=== PATIENT | female | born 1990 | race Caucasian/White ===

== ENCOUNTER 2016-11-23 23:16 | Emergency (ER) | payer OTHER ==
[~2016-11-23] VITALS: Ht 175.3 cm; Wt 80.0 kg
[~2016-11-23 23:16] MED LIST: BACT800T5 PO; LISI10TA3 PO; PROM12.54 PO
[2016-11-23 23:30] VITALS: BP 140/90; PULSE 76; RESP 16; TEMP 98; O2SAT 98
[2016-11-24 02:16] LABS: AUTOMATED NEUTROPHIL # 3.9 TH/MM3 (1.8-7.7); BASOPHIL % 0.4 % (0.0-2.0); EOSINOPHIL # 0.3 TH/MM3 (0-0.4); EOSINOPHIL % 4.2 % (0.0-4.0); HEMATOCRIT 37.1 % (35.0-46.0); HEMO FLAGS DIFF FINAL; LYMPH % 33.3 % (9.0-44.0); LYMPHOCYTE # 2.4 TH/MM3 (1.0-4.8); MEAN CELL VOLUME 87.6 FL (80.0-100.0); MEAN CORPUSCULAR HEMOGLOBIN 29.5 PG (27.0-34.0); MEAN CORPUSCULAR HGB CONC 33.6 % (32.0-36.0); MONO % 8.4 % (0.0-8.0); NEUT % 53.7 % (16.0-70.0); PLATELET COUNT 250 TH/MM3 (150-450); RED BLOOD COUNT 4.23 MIL/MM3 (4.00-5.30); RED CELL DISTRIBUTION WIDTH 14.1 % (11.6-17.2); WHITE BLOOD COUNT 7.2 TH/MM3 (4.0-11.0)
[2016-11-24 02:18] LABS: BACTERIA, URINE OCC /hpf; BLOOD, URINE SMALL (NEG); COMMENT (UR) CULTURE INDICATED; CULTURE IF INDICATED CULTURE INDICATED; GLUCOSE,URINE NEG (NEG); KETONE, URINE NEG (NEG); MUCUS URINE MANY /lpf (OCC); NITRITE,URINE POS (NEG); PH, URINE 5.5 (5.0-8.5); SQUAMOUS EPITHELIAL CELL URINE 13 /hpf (0-5); URINE COLOR YELLOW (YELLW/STRAW)
[2016-11-24 02:44] LABS: ANION GAP 11 MEQ/L (5-15); AST (GOT) 156 U/L (15-37); BICARBONATE 28.9 MEQ/L (21.0-32.0); BLOOD UREA NITROGEN 12 MG/DL (7-18); CHLORIDE 102 MEQ/L (98-107); GLOMERULAR FILTRATION RATE 68 ML/MIN (>89); POTASSIUM 3.6 MEQ/L (3.5-5.1); SODIUM (NA) 142 MEQ/L (136-145)
[2016-11-24 02:48] LABS: ALKALINE PHOSPHATASE 78 U/L (45-117); ALT (GPT) 192 U/L (10-53); TOTAL BILIRUBIN ADULT 0.4 MG/DL (0.2-1.0)
[2016-11-24] MEDS ORDERED: CIPR-9 PO (02:52)
--- NOTE | 2016-11-24 02:58 | PD ---
HPI Chief Complaint: Complaint Time Seen by Provider: 02:50 Travel History International Travel<30 days: No Contact w/Intl Traveler<30days: No Traveled to known affect area: No History of Present Illness HPI 26-year-old female with multiple complaints using leftover prescription of Bactrim for possible UTI. Patient has had blood in her urine. Patient has history of urinary tract infections. Patient also has history of colitis. Patient denies symptoms remind her of inflammation of her intestinal tract. Patient has had urinary frequency urgency dysuria and hematuria without flank pain. Patient reports 3 days ago she did have fever but after starting leftover antibiotic that her temperature has normalized. Patient denies other concerns or complaints. Patient rates pain 3/10 in intensity. PFSH Past Medical History Narrative Medical Depression Crohn's hypertension GERD migraines tobacco use alcohol use substance use nursing notes reviewed Hx Anticoagulant Therapy: No Depression: Yes (ptsd) Cardiovascular Problems: No Chemotherapy: No Cerebrovascular Accident: No Diabetes: No Diminished Hearing: No Gastrointestinal Disorders: Yes (CROHNS) Headaches: Yes Hypertension: Yes Psychiatric: No Reproductive: Yes (ABNORMAL BLEEDING) Respiratory: No Immunizations Current: No Migraines: Yes Seizures: No Thyroid Disease: No Ulcer: No Tetanus Vaccination: Unknown Influenza Vaccination: No ?: Not LMP: 11/04/16 : 7 Para: 2 Miscarriage: 5 Past Surgical History Gynecologic Surgery: Yes (FULL TERM STILL 03/31/12) Hysterectomy: No Other Surgery: No Social History Alcohol Use: Yes ("RARELY") Tobacco Use: Yes (1/2 PPD) Substance Use: Yes (POT, HEROIN, METH, BENZO'S) Allergies-Medications (Allergen,Severity, Reaction): Coded Allergies: No Known Allergies (Verified , 11/24/16) Reported Meds & Prescriptions Reported Meds & Active Scripts Active Cipro (Ciprofloxacin HCl) 500 Mg Tab 500 Mg PO BID 10 Days Review of Systems Except as stated in HPI: all other systems reviewed are Neg General / Constitutional: Positive: Fever, No: Chills (last week) HENT: No: Congestion Cardiovascular: No: Chest Pain or Discomfort Respiratory: No: Cough, Shortness of Breath, Wheezing Gastrointestinal: Positive: Nausea, Abdominal Pain (suprapubic pressure), No: Vomiting, Diarrhea, Hematemesis, Hematochezia Genitourinary: Positive: Urgency, Frequency, Dysuria, Hematuria, No: Pelvic Pain, Flank Pain, Discharge, Vaginal Bleeding Musculoskeletal: No: Myalgias, Arthralgias Skin: No Rash Neurologic: No: Weakness Psychiatric: No: Anxiety Hematologic/Lymphatic: No: Lymph Node Enlargement Physical Exam Narrative GENERAL: Well-developed well-nourished female in no acute distress no respiratory distress SKIN: Warm and dry. HEAD: Normocephalic. EYES: No scleral icterus. No injection or drainage. NECK: Supple, trachea midline. No JVD or lymphadenopathy. CARDIOVASCULAR: Regular rate and rhythm without murmurs, gallops, or rubs. RESPIRATORY: Breath sounds equal bilaterally. No accessory muscle use. GASTROINTESTINAL: Abdomen soft, non-tender except for mild suprapubic pressure to direct palpation without guarding or rebound, nondistended. MUSCULOSKELETAL: No cyanosis, or edema. BACK: Nontender without obvious deformity. No CVA tenderness. Data Data Last Documented VS Vital Signs Date Time Temp Pulse Resp B/P Pulse Ox O2 Delivery O2 Flow Rate FiO2 11/24/16 01:05 76 16 11/23/16 23:30 98.0 140/90 98 Orders Complete Blood Count With Diff (11/24/16 01:42) Comprehensive Metabolic Panel (11/24/16 01:42) Urinalysis - C+S If Indicated (11/24/16 01:42) Ed Urine Pregnancytest Poc (11/24/16 01:42) Urine Culture (11/24/16 01:58) Ceftriaxone Inj (Rocephin Inj) (11/24/16 03:00) Ketorolac Inj (Toradol Inj) (11/24/16 03:00) Labs Laboratory Tests Test 11/24/16 01:58 White Blood Count 7.2 TH/MM3 Red Blood Count 4.23 MIL/MM3 Hemoglobin 12.5 GM/DL Hematocrit 37.1 % Mean Corpuscular Volume 87.6 FL Mean Corpuscular Hemoglobin 29.5 PG Mean Corpuscular Hemoglobin 33.6 % Concent Red Cell Distribution Width 14.1 % Platelet Count 250 TH/MM3 Mean Platelet Volume 9.9 FL Neutrophils (%) (Auto) 53.7 % Lymphocytes (%) (Auto) 33.3 % Monocytes (%) (Auto) 8.4 % Eosinophils (%) (Auto) 4.2 % Basophils (%) (Auto) 0.4 % Neutrophils # (Auto) 3.9 TH/MM3 Lymphocytes # (Auto) 2.4 TH/MM3 Monocytes # (Auto) 0.6 TH/MM3 Eosinophils # (Auto) 0.3 TH/MM3 Basophils # (Auto) 0.0 TH/MM3 CBC Comment DIFF FINAL Differential Comment Urine Color YELLOW Urine Turbidity HAZY Urine pH 5.5 Urine Specific [place] 1.024 Urine Protein 30 mg/dL Urine Glucose (UA) NEG mg/dL Urine Ketones NEG mg/dL Urine Occult Blood SMALL Urine Nitrite POS Urine Bilirubin NEG Urine Urobilinogen LESS THAN 2.0 MG/DL Urine Leukocyte Esterase LARGE Urine RBC 19 /hpf Urine WBC 74 /hpf Urine Squamous Epithelial 13 /hpf Cells Urine Bacteria OCC /hpf Urine Mucus MANY /lpf Microscopic Urinalysis Comment CULTURE INDICATED Sodium Level 142 MEQ/L Potassium Level 3.6 MEQ/L Chloride Level 102 MEQ/L Carbon Dioxide Level 28.9 MEQ/L Anion Gap 11 MEQ/L Blood Urea Nitrogen 12 MG/DL Creatinine 0.97 MG/DL Estimat Glomerular Filtration 68 ML/MIN Rate Random Glucose 85 MG/DL Calcium Level 8.7 MG/DL Total Bilirubin 0.4 MG/DL Aspartate Amino Transf 156 U/L (AST/SGOT) Alanine Aminotransferase 192 U/L (ALT/SGPT) Alkaline Phosphatase 78 U/L Total Protein 8.1 GM/DL Albumin 3.9 GM/DL [facility] Medical Decision Making Medical Screen Exam Complete: Yes Emergency Medical Condition: Yes Medical Record Reviewed: Yes Interpretation(s) Urinalysis positive nitrites positive leukocyte Estrace positive white blood cells positive bacteria culture indicated Vital Signs Date Time Temp Pulse Resp B/P Pulse Ox O2 Delivery O2 Flow Rate FiO2 11/24/16 01:05 76 16 11/23/16 23:30 98.0 76 16 140/90 98 CBC & BMP Diagram 11/24/16 01:58 POC hCG: Negative Differential Diagnosis UTI, colitis, dehydration, URI Narrative Course IV access obtained specimens collected and sent for resulting Patient resting comfortably waiting on lab results CBC grossly within normal range; chemistries remarkable for elevated transaminases AST and ALT; urinalysis is markedly abnormal Patient administered Rocephin 1 g IV piggyback along with Toradol 30 mg IV Patient is stable for outpatient management for partially treated UTI; patient is encouraged follow-up with primary care provider Diagnosis Primary Impression: UTI (urinary tract infection) Additional Impression: Elevated transaminase level Referrals: Primary Care Physician call for appointment Patient Instructions: General Instructions Additional Instructions: Increase fluid hydration Complete course of antibiotic as prescribed Follow-up with primary care provider Use as needed as tolerated acetaminophen/Tylenol every 4 hours as needed for fever 100.4F or greater otherwise avoid use of acetaminophen Follow-up with primary care provider to have repeat lab work performed regarding liver function tests May use as tolerated ibuprofen/Advil/Motrin for pain associated with inflammation or for fever 100.4F or greater Return to the emergency department for any concerns or change in condition Med/Other Pt SpecificInfo: Prescription(s) given Scripts Ciprofloxacin (Cipro)500 Mg [id number] Mg PO BID 10 Days Ref 0 Prov:Padmini Real MD 11/24/16 Padmini Real MD Nov 24, 2016 02:58
[2016-11-24] MEDS ORDERED: KETOROLAC TROMETHAMINE 30 MG/ML (IVP) VIAL IV PUSH ONE (03:00)
[2016-11-24] MEDS ORDERED: cefTRIAXone INJ 1,000 MG in SODIUM CHLORIDE 0.9% INJ 100 ML IV ONE (03:00)
== END 2016-11-24 04:14 | disposition home or self-care (01) ==
LOC: NEPC 23:16
DX: N39.0 Urinary tract infection, site not specified (principal); B96.20 Unspecified Escherichia coli [E. coli] as the cause of diseases classified elsewhere; Z16.11 Resistance to penicillins; Z16.19 Resistance to other specified beta lactam antibiotics; Z16.20 Resistance to unspecified antibiotic; R74.0 Nonspecific elevation of levels of transaminase and lactic acid dehydrogenase [LDH]; I10 Essential (primary) hypertension; F17.210 Nicotine dependence, cigarettes, uncomplicated
CPT/HCPCS: 80053; 81001; 84703; 85025; 87077; 87086; 87186; 96374; 96375; 99283; J0696; J1885

== ENCOUNTER 2016-12-01 21:31 | Emergency (ER) | payer OTHER ==
[~2016-12-01] VITALS: Ht 175.3 cm; Wt 81.0 kg
[~2016-12-01 21:31] MED LIST changes: -BACT800T5 PO; +CIPR-9 PO; -LISI10TA3 PO; -PROM12.54 PO
[2016-12-01 21:33] VITALS: BP 133/85; PULSE 68; RESP 16; TEMP 97.8; O2SAT 100
--- NOTE | 2016-12-02 00:45 | PD ---
HPI Chief Complaint: GI Complaint Time Seen by Provider: 00:07 Travel History International Travel<30 days: No Contact w/Intl Traveler<30days: No Traveled to known affect area: No History of Present Illness HPI Patient is 18-year-old female presents to the emergency department for second evaluation of urinary tract infection. Patient was seen here last week diagnosed urinary tract infections in on Cipro. Patient states that she finished that supply and she received a call from us stating that that wasn't an appropriate antibiotic and she was prescribed additional embolic which she cannot afford. Patient states she's been gradually getting sicker this weeks, on and endorse some chills but did not take her temperature at home. Denies immunocompromised patient. Denies possibility. Does have a history of IV drug abuse. PFSH Past Medical History Hx Anticoagulant Therapy: No Depression: Yes (ptsd) Cardiovascular Problems: No Chemotherapy: No Cerebrovascular Accident: No Diabetes: No Diminished Hearing: No Gastrointestinal Disorders: Yes (CROHNS) Headaches: Yes Hypertension: Yes Psychiatric: No Reproductive: Yes (ABNORMAL BLEEDING) Respiratory: No Immunizations Current: No Migraines: Yes Seizures: No Thyroid Disease: No Ulcer: No ?: Not LMP: 3 weeks ago : 7 Para: 2 Miscarriage: 5 Past Surgical History Gynecologic Surgery: Yes (FULL TERM STILL 03/31/12) Hysterectomy: No Other Surgery: Yes (trigger finger) Social History Alcohol Use: Yes ("RARELY") Tobacco Use: Yes (1/2 PPD) Substance Use: Yes (POT, HEROIN, METH, BENZO'S) Allergies-Medications (Allergen,Severity, Reaction): Coded Allergies: *MDRO Multi-Drug Resistant Organism (Verified Adverse Reaction, Unknown, ) ESBL E.Coli (urine)-11/24/16 Reported Meds & Prescriptions Reported Meds & Active Scripts Active Augmentin (Amoxicillin-Clavulanate) 875-125 mg Tab 875 Mg PO BID 7 Days not for use in CrCl <30 ml/min. Review of Systems Except as stated in HPI: all other systems reviewed are Neg Physical Exam Narrative GENERAL: Well-developed well-nourished nontoxic appearance in no apparent distress. SKIN: Warm and dry. HEAD: Atraumatic. Normocephalic. EYES: Pupils equal and round. No scleral icterus. No injection or drainage. ENT: No nasal bleeding or discharge. Mucous membranes pink and moist. NECK: Trachea midline. No JVD. CARDIOVASCULAR: Regular rate and rhythm. No murmur appreciated. RESPIRATORY: No accessory muscle use. Clear to auscultation. Breath sounds equal bilaterally. GASTROINTESTINAL: Abdomen soft, non-tender, nondistended. Hepatic and splenic margins not palpable. MUSCULOSKELETAL: No obvious deformities. No clubbing. No cyanosis. No edema. NEUROLOGICAL: Awake and alert. No obvious cranial nerve deficits. Motor grossly within normal limits. Normal speech. PSYCHIATRIC: Appropriate mood and affect; insight and judgment normal. Data Data Last Documented VS Vital Signs Date Time Temp Pulse Resp B/P Pulse Ox O2 Delivery O2 Flow Rate FiO2 12/01/16 21:33 97.8 68 16 133/85 100 Orders Urinalysis - C+S If Indicated (12/02/16 00:05) Ed Urine Pregnancytest Poc (12/02/16 00:05) Complete Blood Count With Diff (12/02/16 00:33) Comprehensive Metabolic Panel (12/02/16 00:33) Isolation 08,20 (12/02/16 00:45) Urine Culture (12/02/16 00:15) Ampicillin-Sulbactam Inj (Unasyn Inj) (12/02/16 02:45) Labs Laboratory Tests Test 12/02/16 12/02/16 00:15 01:00 Urine Color DARK-YELLOW Urine Turbidity HAZY Urine pH 5.5 Urine Specific [place] 1.033 Urine Protein 30 mg/dL Urine Glucose (UA) NEG mg/dL Urine Ketones NEG mg/dL Urine Occult Blood NEG Urine Nitrite NEG Urine Bilirubin NEG Urine Urobilinogen 2.0 MG/DL Urine Leukocyte Esterase MOD Urine RBC 1 /hpf Urine WBC 17 /hpf Urine Squamous Epithelial 1 /hpf Cells Urine Mucus MANY /lpf Microscopic Urinalysis Comment CULTURE INDICATED White Blood Count 5.3 TH/MM3 Red Blood Count 4.21 MIL/MM3 Hemoglobin 12.4 GM/DL Hematocrit 37.4 % Mean Corpuscular Volume 88.8 FL Mean Corpuscular Hemoglobin 29.4 PG Mean Corpuscular Hemoglobin 33.1 % Concent Red Cell Distribution Width 14.0 % Platelet Count 191 TH/MM3 Mean Platelet Volume 10.5 FL Neutrophils (%) (Auto) 45.3 % Lymphocytes (%) (Auto) 39.5 % Monocytes (%) (Auto) 9.2 % Eosinophils (%) (Auto) 4.8 % Basophils (%) (Auto) 1.2 % Neutrophils # (Auto) 2.4 TH/MM3 Lymphocytes # (Auto) 2.1 TH/MM3 Monocytes # (Auto) 0.5 TH/MM3 Eosinophils # (Auto) 0.3 TH/MM3 Basophils # (Auto) 0.1 TH/MM3 CBC Comment DIFF FINAL Differential Comment Sodium Level 141 MEQ/L Potassium Level 3.9 MEQ/L Chloride Level 104 MEQ/L Carbon Dioxide Level 28.4 MEQ/L Anion Gap 9 MEQ/L Blood Urea Nitrogen 12 MG/DL Creatinine 1.04 MG/DL Estimat Glomerular Filtration 63 ML/MIN Rate Random Glucose 77 MG/DL Calcium Level 8.8 MG/DL Total Bilirubin 0.7 MG/DL Aspartate Amino Transf 339 U/L (AST/SGOT) Alanine Aminotransferase 497 U/L (ALT/SGPT) Alkaline Phosphatase 74 U/L Total Protein 7.0 GM/DL Albumin 3.4 GM/DL MDM Medical Decision Making Medical Screen Exam Complete: Yes Emergency Medical Condition: Yes Differential Diagnosis UTI, cystitis, pyonephritis unlikely, sepsis highly unlikely. ESBL. Narrative Course Patient 18-year-old female appears nontoxic. Review of her records show that she was having urinary tract infection of this week which is ESBL but was sensitive to Augmentin. On further history patient has lost her Medicaid card and therefore unable to get her medicines. She is provided documentation by registration that she has Medicaid active. Labs are reassuring and she has no Sirs criteria. Does still have evidence of urinary tract infection. Was given a dose of Unasyn in the emergency department and prescription for Augmentin. Discussed need for follow-up with primary care physician and return to ED criteria. She stable for discharge at this time. Diagnosis Primary Impression: UTI (urinary tract infection) Qualified Code: N30.00 - Acute cystitis without hematuria Med/Other Pt SpecificInfo: Prescription(s) given Scripts Amoxicillin-Clavulanate (Augmentin)875-125 mg [id number] Mg PO BID 7 Days Ref 0 not for use in CrCl <30 ml/min. Prov:Arash Reed MD 12/02/16 Disposition: 01 DISCHARGE HOME Condition: Stable Arash Reed MD Dec 02, 2016 00:45
[2016-12-02 01:20] LABS: BLOOD, URINE NEG (NEG); COMMENT (UR) CULTURE INDICATED; CULTURE IF INDICATED CULTURE INDICATED; GLUCOSE,URINE NEG (NEG); KETONE, URINE NEG (NEG); MUCUS URINE MANY /lpf (OCC); NITRITE,URINE NEG (NEG); PH, URINE 5.5 (5.0-8.5); SQUAMOUS EPITHELIAL CELL URINE 1 /hpf (0-5); URINE COLOR DARK-YELLOW (YELLW/STRAW)
[2016-12-02 01:28] LABS: AUTOMATED NEUTROPHIL # 2.4 TH/MM3 (1.8-7.7); BASOPHIL # 0.1 TH/MM3 (0-0.2); BASOPHIL % 1.2 % (0.0-2.0); EOSINOPHIL # 0.3 TH/MM3 (0-0.4); EOSINOPHIL % 4.8 % (0.0-4.0); HEMATOCRIT 37.4 % (35.0-46.0); HEMO FLAGS DIFF FINAL; LYMPH % 39.5 % (9.0-44.0); LYMPHOCYTE # 2.1 TH/MM3 (1.0-4.8); MEAN CELL VOLUME 88.8 FL (80.0-100.0); MEAN CORPUSCULAR HEMOGLOBIN 29.4 PG (27.0-34.0); MEAN CORPUSCULAR HGB CONC 33.1 % (32.0-36.0); MONO % 9.2 % (0.0-8.0); NEUT % 45.3 % (16.0-70.0); PLATELET COUNT 191 TH/MM3 (150-450); RED BLOOD COUNT 4.21 MIL/MM3 (4.00-5.30); WHITE BLOOD COUNT 5.3 TH/MM3 (4.0-11.0)
[2016-12-02 01:54] LABS: ALKALINE PHOSPHATASE 74 U/L (45-117); TOTAL BILIRUBIN ADULT 0.7 MG/DL (0.2-1.0)
[2016-12-02 02:42] LABS: ALT (GPT) 497 U/L (10-53); ANION GAP 9 MEQ/L (5-15); AST (GOT) 339 U/L (15-37); BICARBONATE 28.4 MEQ/L (21.0-32.0); BLOOD UREA NITROGEN 12 MG/DL (7-18); CHLORIDE 104 MEQ/L (98-107); GLOMERULAR FILTRATION RATE 63 ML/MIN (>89); SODIUM (NA) 141 MEQ/L (136-145)
[2016-12-02 02:43] LABS: POTASSIUM 3.9 MEQ/L (3.5-5.1)
[2016-12-02] MEDS ORDERED: AMPICILLIN-SULBACTAM INJ 3 GM in SODIUM CHLORIDE 0.9% INJ 100 ML IV ONE (02:45)
[2016-12-02] MEDS ORDERED: AUGM875T PO (03:16)
== END 2016-12-02 05:20 | disposition home or self-care (01) ==
LOC: NEPC 21:31
DX: N39.0 Urinary tract infection, site not specified (principal); B96.89 Other specified bacterial agents as the cause of diseases classified elsewhere; I10 Essential (primary) hypertension; F17.210 Nicotine dependence, cigarettes, uncomplicated; F12.90 Cannabis use, unspecified, uncomplicated; F15.90 Other stimulant use, unspecified, uncomplicated
CPT/HCPCS: 80053; 81001; 84703; 85025; 87086; 96374; 99283; J0295

== ENCOUNTER 2016-12-21 12:36 | Emergency (ER) | payer OTHER ==
[~2016-12-21] VITALS: Ht 175.3 cm; Wt 75.0 kg
[~2016-12-21 12:36] MED LIST changes: +AUGM875T PO; -CIPR-9 PO
[2016-12-21 12:44] VITALS: BP 148/104; PULSE 100; RESP 18; TEMP 97.8; O2SAT 95
[2016-12-21] MEDS ORDERED: LIDOCAINE 1%/EPINEPHrine 1:100,000 SOLN 20 ML VIAL INFIL ONE (14:15)
[2016-12-21] MEDS ORDERED: ONDANSETRON ODT 4 MG TAB PO ONE (14:15)
--- NOTE | 2016-12-21 14:17 | PD ---
HPI Chief Complaint: Lump, Cyst, Hernia Time Seen by Provider: 14:05 Travel History International Travel<30 days: No Contact w/Intl Traveler<30days: No Traveled to known affect area: No History of Present Illness HPI 26-year-old female presents for evaluation of right arm abscess. She reports that she injects IV Dilaudid and she missed her pain one week ago. Since then she has had pain and swelling. Pain is throbbing, constant, worse with palpation. She tried to drain it herself at home with no success. She has had some diarrhea over the past 2 days as well. She reports that she's been using Augmentin as well as leftover penicillin and effort to self treat. She endorses occasional chills as well as nausea. She has no other complaints at this time. PFSH Past Medical History Hx Anticoagulant Therapy: No Depression: Yes (ptsd) Cardiovascular Problems: No Chemotherapy: No Cerebrovascular Accident: No Diabetes: No Diminished Hearing: No Gastrointestinal Disorders: Yes (CROHNS) Headaches: Yes Hypertension: Yes Psychiatric: No Reproductive: Yes (ABNORMAL BLEEDING) Respiratory: No Immunizations Current: No Migraines: Yes Seizures: No Thyroid Disease: No Ulcer: No ?: Unknown LMP: OCT 2016 : 7 Para: 2 Miscarriage: 5 Past Surgical History Gynecologic Surgery: Yes (FULL TERM STILL 03/31/12) Hysterectomy: No Other Surgery: Yes (trigger finger) Social History Alcohol Use: Yes ("RARELY") Tobacco Use: Yes (1/2 PPD) Substance Use: Yes (POT, HEROIN, METH, BENZO'S) Allergies-Medications (Allergen,Severity, Reaction): Coded Allergies: *MDRO Multi-Drug Resistant Organism (Verified Adverse Reaction, Unknown, ) ESBL E.Coli (urine)-11/24/16 Reported Meds & Prescriptions Reported Meds & Active Scripts Active Augmentin (Amoxicillin-Clavulanate) 875-125 mg Tab 875 Mg PO BID 7 Days not for use in CrCl <30 ml/min. Review of Systems Except as stated in HPI: all other systems reviewed are Neg Physical Exam Narrative GENERAL: Well-developed well-nourished female in no acute distress SKIN: Warm and dry. Large fluctuant abscess right antecubital space. Minimal surrounding erythema. No drainage. HEAD: Atraumatic. Normocephalic. EYES: Pupils equal and round. No scleral icterus. No injection or drainage. ENT: No nasal bleeding or discharge. Mucous membranes pink and moist. NECK: Trachea midline. No JVD. CARDIOVASCULAR: Regular rate and rhythm. No murmur appreciated. RESPIRATORY: No accessory muscle use. Clear to auscultation. Breath sounds equal bilaterally. GASTROINTESTINAL: Abdomen soft, non-tender, nondistended. Hepatic and splenic margins not palpable. MUSCULOSKELETAL: No obvious deformities. Skin as noted above. NEUROLOGICAL: Awake and alert. No obvious cranial nerve deficits. Motor grossly within normal limits. Normal speech. Data Data Last Documented VS Vital Signs Date Time Temp Pulse Resp B/P Pulse Ox O2 Delivery O2 Flow Rate FiO2 12/21/16 12:44 97.8 100 18 148/104 95 Orders Lidocai-Epi 1%-1:100,000 Inj (Xylocaine- (12/21/16 14:15) Wound Culture And Gram Stain (12/21/16 14:05) Ed Urine Pregnancytest Poc (12/21/16 14:05) Ondansetron Odt (Zofran Odt) (12/21/16 14:15) Sulfamet-Trimeth Ds 800-160 Mg (Bactrim (12/21/16 14:45) Cephalexin (Keflex) (12/21/16 14:45) MDM Medical Decision Making Medical Screen Exam Complete: Yes Emergency Medical Condition: Yes Medical Record Reviewed: Yes Differential Diagnosis Abscess, cellulitis, sepsis, endocarditis Narrative Course 26-year-old female IV drug user presents with a large abscess to the right antecubital region. This abscess is very fluctuant and superficial and will be drained here. She otherwise appears well. She has had some nausea and diarrhea likely secondary to the administration of Augmentin and penicillin. Recommended discontinuing these agents. She was given some Zofran here. She has verbally consented to incision and drainage will be performed at bedside. Wound culture performed. She'll be started on Bactrim and Keflex pending culture results. Return in 2 days for packing removal and wound recheck. She was also given outpatient resource list in regards to detoxification. Procedures Procedure Narrative INCISION AND DRAINAGE OF ABSCESS: The area was prepped and was sterilely draped. A subcutaneous wheal of 1 % Xylocaine with epinephrine with a total number 10 mL was used to anesthetize the area. The area was properly anesthetized. A number 11 scalpel was used to make a 1.5-cm incision across the area of the abscess. Cultures were obtained. The abscess was drained an irrigated with normal saline. Quarter inch iodoform packing was placed in the wound. Sterile dressing applied. Patient advised to have packing removed in two days. Diagnosis Primary Impression: Abscess of right arm Additional Instructions: Return in 2 days for wound recheck, packing removal. Antibiotics as prescribed. Return sooner for any worsening symptoms such as fevers, increasing area of redness. Med/Other Pt SpecificInfo: Prescription(s) given, Wound Care Scripts Cephalexin (Keflex)500 Mg [id number] Mg PO Q6H 10 Days Ref 0 Prov:Becca Robles MD 12/21/16 Sulfamethoxazole-Trimethoprim (Bactrim DS)800-160 Mg Tab1 Tab PO BID #20 TAB Ref 0 Prov:Becca Robles MD 12/21/16 Disposition: 01 DISCHARGE HOME Condition: Stable Sb Crane Dec 21, 2016 14:17
--- NOTE | 2016-12-21 14:34 | PD ---
Data Data Last Documented VS Vital Signs Date Time Temp Pulse Resp B/P Pulse Ox O2 Delivery O2 Flow Rate FiO2 12/21/16 12:44 97.8 100 18 148/104 95 Orders Lidocai-Epi 1%-1:100,000 Inj (Xylocaine- (12/21/16 14:15) Wound Culture And Gram Stain (12/21/16 14:05) Ed Urine Pregnancytest Poc (12/21/16 14:05) Ondansetron Odt (Zofran Odt) (12/21/16 14:15) MDM Supervised Visit with KIKE: Yes Narrative Course I, Dr. Robles, have reviewed the advance practice practioner's documentation and am in agreement, met with the patient face to face, made the diagnosis, and the medical decision making was done by me. *My assessment and Findings: 26-year-old female with history of IV drug abuse here with right arm and abscess after she missed a vein several days ago. She's been taking leftover home antibiotics in an attempt to treat this infection and has some diarrhea with this. On exam she has a clear abscess with swelling, erythema and fluctuance in the right antecubital fossa. No evidence of other systemic infection. Abscess was incised, drained and patient discharged home with outpatient resources for chemical dependency. Diagnosis Primary Impression: Abscess of right arm Additional Impression: IV drug abuse Referrals: Primary Care Physician 2 days Packing removal [facility] call for appointment Additional Instruction: Packing removal in 2 days as discussed. Return to the emergency department for the warning signs discussed. Outpatient chemical dependency resources as provided. Med/Other Pt SpecificInfo: No Change to Meds Disposition: 01 DISCHARGE HOME Condition: Stable Becca Robles MD Dec 21, 2016 14:34
[2016-12-21] MEDS ORDERED: BACT800T5 PO (14:40)
[2016-12-21] MEDS ORDERED: CEPH-460 PO (14:40)
[2016-12-21] MEDS ORDERED: SULFAMETHOXAZOLE-TRIMETHOPRIM DS 800-160 MG TAB PO ONE (14:45)
[2016-12-21] MEDS ORDERED: CEPHALEXIN MONOHYDRATE 500 MG CAP PO ONE (14:45)
== END 2016-12-21 15:05 | disposition home or self-care (01) ==
LOC: NEPB 12:36
DX: L02.413 Cutaneous abscess of right upper limb (principal); I10 Essential (primary) hypertension; F17.210 Nicotine dependence, cigarettes, uncomplicated; F11.20 Opioid dependence, uncomplicated; F12.20 Cannabis dependence, uncomplicated; F19.20 Other psychoactive substance dependence, uncomplicated; F43.10 Post-traumatic stress disorder, unspecified; F32.9 Major depressive disorder, single episode, unspecified
CPT/HCPCS: 10061; 84703; 87070; 87185

== ENCOUNTER 2017-04-02 13:04 | Emergency (ER) | payer SELFPAY ==
[~2017-04-02] VITALS: Ht 175.3 cm; Wt 70.3 kg
[~2017-04-02 13:04] MED LIST changes: +BACT800T5 PO; +CEPH-460 PO
[2017-04-02 13:21] VITALS: BP 115/74; PULSE 120; RESP 16; TEMP 98.1; O2SAT 98
[2017-04-02] MEDS ORDERED: SODIUM CHLOR 0.9% 1000 ML INJ 1,000 ML IV SCH (13:54)
[2017-04-02] MEDS ORDERED: VANCOMYCIN INJ 1,000 MG in SODIUM CHLOR 0.9% 250 ML INJ 250 ML IV ONE (14:00)
[2017-04-02] MEDS ORDERED: TETANUS/DIPHTHERIA TOXOID ADULT 0.5 ML VIAL IM ONE (14:00)
[2017-04-02] MEDS ORDERED: SODIUM CHLORIDE 0.9% FLUSH 10 ML FLUSH IV FLUSH PRN (14:00)
--- NOTE | 2017-04-02 14:07 | PD ---
HPI Chief Complaint: Skin Problem Time Seen by Provider: 13:43 Travel History International Travel<30 days: No Contact w/Intl Traveler<30days: No Traveled to known affect area: No History of Present Illness HPI Patient is a 26-year-old female who presents to emergency room with complaints of skin abscesses. Reports that for the past week, she has noticed an abscess to her left axilla, reports 2 abscess to the left-side of her labia as well as an abscess near her rectum. Reports that she has been having subjective fever and chills with her symptoms. Reports that she has been applying cool compresses to the area with no relief of symptoms. Reports history of IVDA in the past, denies recent history of IVDA. Patient reports that she has been living at home with some of her friends, reports that sometimes she finds that her razors have hair on it that do not belong to her. Reports concern that her friends may be using her razor. Denies history of abscess in the past. PFSH Past Medical History Hx Anticoagulant Therapy: No Depression: Yes (ptsd) Cardiovascular Problems: No Chemotherapy: No Cerebrovascular Accident: No Diabetes: No Diminished Hearing: No Gastrointestinal Disorders: Yes (CROHNS) Headaches: Yes Hypertension: Yes Psychiatric: No Reproductive: Yes (ABNORMAL BLEEDING) Respiratory: No Immunizations Current: No Migraines: Yes Seizures: No Thyroid Disease: No Ulcer: No Tetanus Vaccination: Unknown ?: Not LMP: 1 MONTH AGO : 7 Para: 2 Miscarriage: 5 Past Surgical History Gynecologic Surgery: Yes (FULL TERM STILL 03/31/12) Hysterectomy: No Other Surgery: Yes (trigger finger) Social History Alcohol Use: Yes ("RARELY") Tobacco Use: Yes (1 PPD) Substance Use: Yes (POT, HEROIN, METH, BENZO'S) Allergies-Medications (Allergen,Severity, Reaction): Coded Allergies: *MDRO Multi-Drug Resistant Organism (Verified Adverse Reaction, Unknown, ) ESBL E.Coli (urine)-11/24/16 Reported Meds & Prescriptions Reported Meds & Active Scripts Active No Active Prescriptions or Reported Medications Review of Systems General / Constitutional: Positive: Fever, Chills Eyes: No: Visual changes HENT: No: Headaches Cardiovascular: No: Chest Pain or Discomfort Respiratory: No: Shortness of Breath Gastrointestinal: No: Abdominal Pain Genitourinary: No: Dysuria Musculoskeletal: No: Pain Skin: Positive Other (abscess), No Rash Neurologic: No: Weakness Psychiatric: No: Depression Endocrine: No: Polydipsia Hematologic/Lymphatic: No: Easy Bruising Physical Exam Narrative GENERAL: Mild distress SKIN: Focused skin assessment warm/dry. Patient with multiple abscesses her body, she with nonfluctuant abscess to her left axilla, patient with 2 nonfluctuant abscess cyst to her left labia majora, patient with nonfluctuant abscess near her rectal verge - no drainage from composite engineer: Atraumatic. Normocephalic. EYES: Pupils equal and round. No scleral icterus. No injection or drainage. ENT: No nasal bleeding or discharge. Mucous membranes pink and moist. NECK: Trachea midline. No JVD. CARDIOVASCULAR: Tachycardic. No murmur appreciated. RESPIRATORY: No accessory muscle use. Clear to auscultation. Breath sounds equal bilaterally. GASTROINTESTINAL: Abdomen soft, non-tender, nondistended. Hepatic and splenic margins not palpable. MUSCULOSKELETAL: No obvious deformities. No clubbing. No cyanosis. No edema. NEUROLOGICAL: Awake and alert. No obvious cranial nerve deficits. Motor grossly within normal limits. Normal speech. PSYCHIATRIC: patient anxious on exam Data Data Last Documented VS Vital Signs Date Time Temp Pulse Resp B/P Pulse Ox O2 Delivery O2 Flow Rate FiO2 04/02/17 15:22 78 16 99 Room Air 04/02/17 13:21 98.1 115/74 Orders Basic Metabolic Panel (Bmp) (04/02/17 13:54) Complete Blood Count With Diff (04/02/17 13:54) Iv Access Insert/Monitor (04/02/17 13:54) Sodium Chlor 0.9% 1000 Ml Inj (Ns 1000 M (04/02/17 13:54) Sodium Chloride 0.9% Flush (Ns Flush) (04/02/17 14:00) Ed Urine Pregnancytest Poc (04/02/17 13:54) Vancomycin Inj (Vancomycin Inj) (04/02/17 14:00) Tetanus/Diphtheria Tox Adult (Tetanus/Di (04/02/17 14:00) Labs Laboratory Tests Test 04/02/17 14:30 White Blood Count 8.0 TH/MM3 Red Blood Count 4.10 MIL/MM3 Hemoglobin 11.9 GM/DL Hematocrit 36.2 % Mean Corpuscular Volume 88.2 FL Mean Corpuscular Hemoglobin 29.0 PG Mean Corpuscular Hemoglobin 32.9 % Concent Red Cell Distribution Width 12.9 % Platelet Count 335 TH/MM3 Mean Platelet Volume 8.1 FL Neutrophils (%) (Auto) 78.1 % Lymphocytes (%) (Auto) 12.9 % Monocytes (%) (Auto) 5.6 % Eosinophils (%) (Auto) 2.5 % Basophils (%) (Auto) 0.9 % Neutrophils # (Auto) 6.2 TH/MM3 Lymphocytes # (Auto) 1.0 TH/MM3 Monocytes # (Auto) 0.5 TH/MM3 Eosinophils # (Auto) 0.2 TH/MM3 Basophils # (Auto) 0.1 TH/MM3 CBC Comment DIFF FINAL Differential Comment Sodium Level 143 MEQ/L Potassium Level 4.3 MEQ/L Chloride Level 108 MEQ/L Carbon Dioxide Level 27.6 MEQ/L Anion Gap 7 MEQ/L Blood Urea Nitrogen 12 MG/DL Creatinine 0.79 MG/DL Estimat Glomerular Filtration 87 ML/MIN Rate Random Glucose 97 MG/DL Calcium Level 9.1 MG/DL MDM Medical Decision Making Medical Screen Exam Complete: Yes Emergency Medical Condition: Yes Interpretation(s) Vital Signs Date Time Temp Pulse Resp B/P Pulse Ox O2 Delivery O2 Flow Rate FiO2 04/02/17 13:21 98.1 120 16 115/74 98 Differential Diagnosis Differential includes abscess versus swollen lymph nodes Narrative Course Patient is a 26-year-old female who presents to emergency room with complaints of abscesses to her left axilla, labia as well as near her rectal verge. Abscess is nonfluctuant in nature - discussed need for antibiotics and need for warm compresses. I am unable to drain abscesses at this time, will require antibiotics and re-evaluation in 48 hours. Plan to update her tetanus at this time Vital Signs Date Time Temp Pulse Resp B/P Pulse Ox O2 Delivery O2 Flow Rate FiO2 04/02/17 15:22 78 16 99 Room Air 04/02/17 13:21 98.1 120 16 115/74 98 CBC & BMP Diagram 04/02/17 14:30 Labs and repeat vs are reassuring. Patient with nonfluctuant abscesses. Discussed with patient need to follow-up in 48 hours for I&D. Discussed need for warm compresses. She will take antibiotics as prescribed. She will return to the emergency room if symptoms worsen or progress or she develops any fevers or chills. Diagnosis Primary Impression: Abscess of right axilla Additional Impression: Abscess of labia majora Patient Instructions: General Instructions Additional Instructions: Apply warm compresses to areas of abscess Take all antibiotics as prescribed Return to emergency room or to your primary care doctor's office in 48 hours for reevaluation Return to emergency room is worse or progress or if you develop fever/chills Med/Other Pt SpecificInfo: Prescription(s) given Scripts Ibuprofen 600 Mg [id number] Mg PO Q6H PRN (Pain/Inflammation) #40 TAB Ref 0 Prov:Liseth Tomas DO 04/02/17 Sulfamethoxazole-Trimethoprim (Bactrim DS)800-160 Mg Tab1 Tab PO BID 10 Days Ref 0 Prov:Liseth Tomas DO 04/02/17 Cephalexin (Keflex)500 Mg [id number] Mg PO Q6H 10 Days Ref 0 Prov:Liseth Tomas DO 04/02/17 Disposition: 01 DISCHARGE HOME Condition: Stable Liseth Tomas DO Apr 02, 2017 14:07
[2017-04-02 14:47] LABS: AUTOMATED NEUTROPHIL # 6.2 TH/MM3 (1.8-7.7); BASOPHIL # 0.1 TH/MM3 (0-0.2); BASOPHIL % 0.9 % (0.0-2.0); EOSINOPHIL # 0.2 TH/MM3 (0-0.4); EOSINOPHIL % 2.5 % (0.0-4.0); HEMATOCRIT 36.2 % (35.0-46.0); LYMPH % 12.9 % (9.0-44.0); MEAN CELL VOLUME 88.2 FL (80.0-100.0); MEAN CORPUSCULAR HGB CONC 32.9 % (32.0-36.0); MONO % 5.6 % (0.0-8.0); NEUT % 78.1 % (16.0-70.0); PLATELET COUNT 335 TH/MM3 (150-450); RED CELL DISTRIBUTION WIDTH 12.9 % (11.6-17.2)
[2017-04-02 14:58] LABS: POTASSIUM 4.3 MEQ/L (3.5-5.1)
[2017-04-02 15:03] LABS: BICARBONATE 27.6 MEQ/L (21.0-32.0); HEMO FLAGS DIFF FINAL
[2017-04-02 15:22] VITALS: PULSE 78; RESP 16; O2SAT 99
[2017-04-02] MEDS ORDERED: IBUP-232 PO (16:03)
[2017-04-02] MEDS ORDERED: BACT800T5 PO (16:03)
[2017-04-02] MEDS ORDERED: CEPH-460 PO (16:03)
== END 2017-04-02 16:49 | disposition home or self-care (01) ==
LOC: PHED 13:04
DX: L02.411 Cutaneous abscess of right axilla (principal); N76.4 Abscess of vulva; Z23 Encounter for immunization
CPT/HCPCS: 80048; 84703; 85025; 90471; 90714; 96365; 96366; 99284; J3370; J7030; J7050

== ENCOUNTER 2017-08-16 18:32 | Emergency (ER) | payer SELFPAY ==
[~2017-08-16] VITALS: Ht 175.3 cm; Wt 71.8 kg
[~2017-08-16 18:32] MED LIST changes: -AUGM875T PO; +IBUP-232 PO
[2017-08-16 18:36] VITALS: BP 139/68; PULSE 85; RESP 16; TEMP 97.5; O2SAT 99
[2017-08-16] MEDS ORDERED: CLIN300C5 PO (19:47)
--- NOTE | 2017-08-16 19:47 | PD ---
HPI Chief Complaint: Skin Problem Time Seen by Provider: 19:18 Travel History International Travel<30 days: No Contact w/Intl Traveler<30days: No Traveled to known affect area: No History of Present Illness HPI 26-year-old female here with abscess to the left upper extremity 2 days. She denies fever or chills. Patient is history of IV drug abuse. She reports that she injected into the site approximately one week ago. She reports she's had similar abscesses in the past. PFSH Past Medical History Hx Anticoagulant Therapy: No Anxiety: Yes Depression: Yes (ptsd) Cardiovascular Problems: No Chemotherapy: No Cerebrovascular Accident: No Diabetes: No Diminished Hearing: No Gastrointestinal Disorders: Yes (CROHNS) Headaches: Yes Hypertension: Yes Psychiatric: Yes Reproductive: Yes (ABNORMAL BLEEDING) Respiratory: No Immunizations Current: No Migraines: Yes Seizures: Yes (FROM XANAX WITHDRAW) Thyroid Disease: No Ulcer: No ?: Unknown LMP: STATES APPROXIMATELY 3 MONTHS AGO : 7 Para: 2 Miscarriage: 5 Past Surgical History Gynecologic Surgery: Yes (FULL TERM STILL 03/31/12) Hysterectomy: No Other Surgery: Yes (trigger finger) Social History Alcohol Use: Yes ("RARELY") Tobacco Use: Yes (1/2 PPD) Substance Use: Yes (POT, HEROIN, DILUADIDM, METH, BENZO'S) Allergies-Medications (Allergen,Severity, Reaction): Coded Allergies: *MDRO Multi-Drug Resistant Organism (Verified Adverse Reaction, Unknown, 08/16/17) ESBL E.Coli (urine)-11/24/16 Reported Meds & Prescriptions Reported Meds & Active Scripts Active Clindamycin (Clindamycin HCl) 300 Mg Cap 300 Mg PO Q6H 10 Days Physical Exam Narrative GENERAL: Well-nourished, well-developed patient. SKIN: Focused skin assessment warm/dry. 3.5 cm diameter area of fluctuance, erythema and induration over the left forearm over the AC. HEAD: Normocephalic. CARDIOVASCULAR: Regular rate and rhythm without murmurs, gallops, or rubs. RESPIRATORY: Breath sounds equal bilaterally. No accessory muscle use. MUSCULOSKELETAL: No cyanosis, or edema. Data Data Last Documented VS Vital Signs Date Time Temp Pulse Resp B/P (MAP) Pulse Ox O2 Delivery O2 Flow Rate FiO2 08/16/17 18:36 97.5 85 16 139/68 (91) 99 MDM Medical Decision Making Medical Screen Exam Complete: Yes Emergency Medical Condition: Yes Differential Diagnosis Abscess, cellulitis, wound infection Narrative Course 26-year-old female here with abscess to the left upper extremity 2 days. She denies fever or chills. Patient is history of IV drug abuse. She reports that she injected into the site approximately one week ago. She reports she's had similar abscesses in the past. Incision and drainage was performed. Patient tolerated procedure well. Return precautions discussed. Diagnosis Primary Impression: Abscess of left upper extremity Referrals: Primary Care Physician Additional Instructions: The antibiotics as prescribed. Change the dressing daily. The packing should be removed in 1-2 days. Return to emergency department if he developed new or worsening symptoms. Scripts Clindamycin (Clindamycin) 300 Mg Cap 300 MG PO Q6H for Infection for 10 Days, #40 CAP 0 Refills Prov: Felicita Mancilla 08/16/17 Disposition: 01 DISCHARGE HOME Condition: Stable Felicita Mancilla Aug 16, 2017 19:47
== END 2017-08-16 19:56 | disposition home or self-care (01) ==
LOC: PHEFT 18:32
DX: L02.414 Cutaneous abscess of left upper limb (principal); F17.210 Nicotine dependence, cigarettes, uncomplicated; F12.90 Cannabis use, unspecified, uncomplicated; F15.90 Other stimulant use, unspecified, uncomplicated
CPT/HCPCS: 10060; 10061

== ENCOUNTER 2017-09-09 11:40 | Emergency (ER) | payer SELFPAY ==
[~2017-09-09] VITALS: Ht 175.3 cm; Wt 71.0 kg
[~2017-09-09 11:40] MED LIST changes: -BACT800T5 PO; -CEPH-460 PO; +CLIN300C5 PO; -IBUP-232 PO
[2017-09-09 11:49] VITALS: BP 114/65; PULSE 88; RESP 16; TEMP 98.5; O2SAT 100
--- NOTE | 2017-09-09 13:23 | PD ---
HPI Chief Complaint: Eye Problems/Injury Time Seen by Provider: 13:04 Travel History International Travel<30 days: No Contact w/Intl Traveler<30days: No Traveled to known affect area: No History of Present Illness HPI 26-year-old female here with left upper lid swelling 3 days. She denies fever or chills. She denies visual changes. She denies eye pain. She denies injury or trauma. No aggravating or alleviating factors. Symptoms severity moderate. PFSH Past Medical History Hx Anticoagulant Therapy: No Anxiety: Yes Depression: Yes (ptsd) Cardiovascular Problems: No Chemotherapy: No Cerebrovascular Accident: No Diabetes: No Diminished Hearing: No Gastrointestinal Disorders: Yes (CROHNS) Headaches: Yes Hypertension: Yes Psychiatric: Yes Reproductive: Yes (ABNORMAL BLEEDING) Respiratory: No Immunizations Current: No Migraines: Yes Seizures: Yes (FROM XANAX WITHDRAW) Thyroid Disease: No Ulcer: No ?: Not LMP: ONE WEEK : 7 Para: 2 Miscarriage: 5 Past Surgical History Gynecologic Surgery: Yes (FULL TERM STILL 03/31/12) Hysterectomy: No Other Surgery: Yes (trigger finger) Social History Alcohol Use: Yes ("RARELY") Tobacco Use: Yes (1/2 PPD) Substance Use: Yes (POT, HEROIN, DILUADIDM, METH, BENZO'S) Allergies-Medications (Allergen,Severity, Reaction): Coded Allergies: *MDRO Multi-Drug Resistant Organism (Verified Adverse Reaction, Unknown, 08/16/17) ESBL E.Coli (urine)-11/24/16 Reported Meds & Prescriptions Reported Meds & Active Scripts Active Erythromycin Opth Oint 5 Mg/Gm Oint 1 Applic LEFT EYE QID Clindamycin (Clindamycin HCl) 300 Mg Cap 300 Mg PO Q6H 10 Days Review of Systems Except as stated in HPI: all other systems reviewed are Neg General / Constitutional: No: Fever Eyes: No: Visual changes Physical Exam Narrative GENERAL: Alert female in no distress. SKIN: Warm and dry. HEAD: Normocephalic. EYES: No injection or drainage. PERRLA. EOMs intact. EOMs painless. Moderate swelling/erythema isolated to the left upper lid. No proptosis. Visual acuity left eye 20/20 NECK: Supple, trachea midline. No JVD or lymphadenopathy. CARDIOVASCULAR: Regular rate and rhythm without murmurs, gallops, or rubs. RESPIRATORY: Breath sounds equal bilaterally. No accessory muscle use. Data Data Last Documented VS Vital Signs Date Time Temp Pulse Resp B/P (MAP) Pulse Ox O2 Delivery O2 Flow Rate FiO2 09/09/17 11:49 98.5 88 16 114/65 (81) 100 Orders Orders Ed Discharge Order (09/09/17 13:27) MDM Medical Decision Making Medical Screen Exam Complete: Yes Emergency Medical Condition: Yes Differential Diagnosis Periorbital cellulitis, orbital cellulitis, stye Narrative Course 26-year-old female here with left upper lid swelling 3 days. She denies fever or chills. On exam she has isolated left upper lid swelling. EOMs intact. Extra ocular motions are painless. Patient will be treated for left upper lid cellulitis. Strict return precautions discussed. Patient verbalizes understanding and agrees to plan Diagnosis Primary Impression: Cellulitis of left upper eyelid Referrals: Primary Care Physician Scripts Erythromycin Opth Oint (Erythromycin Opth Oint) 5 Mg/Gm Oint 1 APPLIC LEFT EYE QID for Infection, #1 TUBE 0 Refills Prov: Felicita Mancilla 09/09/17 Clindamycin (Clindamycin) 300 Mg Cap 300 MG PO Q6H for Infection for 10 Days, #40 CAP 0 Refills Prov: Felicita Mancilla 09/09/17 Disposition: 01 DISCHARGE HOME Condition: Stable Felicita Mancilla Sep 09, 2017 13:23
[2017-09-09] MEDS ORDERED: ERYTOIN10 LEFT EYE (13:26)
[2017-09-09] MEDS ORDERED: CLIN300C5 PO (13:26)
== END 2017-09-09 13:35 | disposition home or self-care (01) ==
LOC: PHED 11:40 → PHEFT 13:35
DX: H00.034 Abscess of left upper eyelid (principal); F17.200 Nicotine dependence, unspecified, uncomplicated
CPT/HCPCS: 99284

== ENCOUNTER 2018-06-12 19:06 | Inpatient (IN) ==
--- NOTE | 2018-06-12 20:57 | ED ---
HPI General Chief complaint: Allergic Reaction Stated complaint: poss reaction Time Seen by Provider: 06/12/18 20:56 Source: patient Mode of arrival: ambulatory Limitations: no limitations History of Present Illness HPI narrative: 27-year-old female with history of polysubstance abuse, opiate dependency, bipolar disorder, presents emergency department for evaluation. Patient states she was started on new medications 2 weeks ago. They include Seroquel, lamotrigine, Wellbutrin. Patient states that about 7 days after taking them, she began to feel high and having hallucinations. She feels like she is tripping on acid when she is not doing acid. Patient has also been unable to sleep. She denies any chest pain or tightness. No difficulty breathing. She has had no fever chills. Patient also uses IV opiates, cocaine , smokes marijuana. Her mother is with her and is concerned about all the medications that she is on. She is also requesting help with detox. Patient states that she wants us help. No other symptoms to report at this time. Related Data Home Medications Medication Instructions Recorded Confirmed bupropion HCl [Wellbutrin SR] 150 mg PO DAILY 05/08/18 05/08/18 Allergies Allergy/AdvReac Type Severity Reaction Status Date / Time *MDRO Multi-Drug Resistant AdvReac Unknown Uncoded 08/16/17 19:12 Organism Review of Systems ROS: all other systems reviewed are negative PMFSH Medical History Medical History Patient denies medical problems (Acute) Anxiety (Acute) Depression (Acute) PTSD (post-traumatic stress disorder) (Acute) Surgical History Surgical History No history of previous surgery (Acute) Social History Social History Substance History: Active Abuse Smoking Status: Current every day smoker Tobacco Type: Cigarettes How Often Do You Have a Drink Containing Alcohol: Never Recent Travel in [facility] within the Last 8 Weeks: No Recent Out of Country Travel within the Last 8 Weeks: No Exam Narrative Exam Narrative: GENERAL: Well-nourished female patient, anxious, pacing, without distress. SKIN: Focused skin assessment warm/dry. 2 cm in diameter hardened red lump on the left forearm. There is another one on the right antecubital space and on the left neck. There is no fluctuance. No drainage. No warmth to touch. HEAD: Atraumatic. Normocephalic. EYES: Pupils equal and round. No scleral icterus. No injection or drainage. ENT: No nasal bleeding or discharge. Mucous membranes pink and moist. NECK: Trachea midline. No JVD. CARDIOVASCULAR: Tachycardic rate and rhythm. No murmur appreciated. RESPIRATORY: No accessory muscle use. Clear to auscultation. Breath sounds equal bilaterally. GASTROINTESTINAL: Abdomen soft, non-tender, nondistended. Hepatic and splenic margins not palpable. MUSCULOSKELETAL: No obvious deformities. No clubbing. No cyanosis. No edema. NEUROLOGICAL: Awake and alert. No obvious cranial nerve deficits. Motor grossly within normal limits. Normal speech. Course Initial Documented Vital Signs Temperature 98.8 F 06/12/18 20:24 Pulse Rate 107 H 06/12/18 20:24 Respiratory Rate 20 06/12/18 20:24 Blood Pressure 122/85 06/12/18 20:24 Pulse Oximetry 97 06/12/18 20:24 Last Documented Vital Signs Temperature 98.8 F 06/12/18 20:24 Pulse Rate 110 H 06/13/18 00:05 Respiratory Rate 24 06/13/18 00:05 Blood Pressure 108/70 06/13/18 00:05 Pulse Oximetry 98 06/13/18 00:05 Medical Decision Making KIKE Attestation KIKE supervised visit: Yes MDM Narrative Medical decision making narrative: 27-year-old female presents emergency department for evaluation of possible adverse reaction to psychiatric medications. Patient has history of polysubstance abuse. Initially the patient is twitching, anxious, pacing around the room. She is willing to wait for workup and speak to psychiatry. I have explained to them that we are not a detox facility but would be happy to have psychiatrist see him in the morning to help with medication adjustment recommendations. The patient is given Ativan to help her to calm down. Upon reassessment, patient is more anxious. She is pacing. Mom is very concerned and irritated with the situation. Lab work has been reviewed and is without acute concern. Patient has mild hypokalemia. She is positive for opiates, benzodiazepines, cocaine, and marijuana. My concern is the patient actively withdrawing in conjunction with adverse effects from her antipsychotics. I discussed the patient my attending physician. She is given additional Ativan. She will be given 0.1 mg clonidine by mouth as well. Patient did last use heroin earlier today. 0000 patient is becoming more more agitated. She is having hallucinations. She is in the room, pretending to do drugs and smokes cigarettes. She is talking to people that are not there. She is intermittently agitated with outbursts of anger at her mom. She attempts to leave and states that her mom will not have to "worry about her anymore" she is asking us to let her "end it. " With concern for the patient's safety and her demonstrating that she would not be able to make decisions for herself at this time, I discussed this with my attending physician and she is placed under Roth act. Because patient has been given Ativan, she will be given Benadryl at this time. 0100 patient continues to have hallucinations. She is having intermittent outbursts of anger. She is up wandering, she thinks she is in somebody else's house. She will be given Zyprexa at this time. 0130 I have discussed the patient with Dr. Dixon. She is hallucinating more and becoming more aggressive. She continues to respond to internal stimuli. Dr. Dixon his, and assessed the patient. He recommends continued Ativan every hour until sedation. Patient is given additional Ativan at this time. 0200 patient is given additional Ativan. She is swinging at people who were not there. Patient appears very tired, however she is unwilling to lay down and relax and rest. 0230 patient is resting quietly in the bed. Her eyes are closed. Vital signs are stable. Medical Screen Exam Complete: Yes Emergency Medical Condition: Yes Differential Diagnosis Differential Diagnosis: Acute psychosis versus adjustment reaction versus polysubstance abuse versus withdrawal Lab Data Lab results reviewed: Yes I reviewed the patient's lab results. Result diagrams: 06/12/18 21:38 06/12/18 21:38 Lab Results 06/12/18 06/12/18 06/12/18 Range/Units 21:38 21:38 22:10 WBC 10.8 (4.0-11.0) th/mm3 RBC 4.17 (4.00-5.30) mil/mm3 Hgb 12.0 (11.6-15.3) gm/dL Hct 36.1 (35.0-46.0) % MCV 86.6 (80.0-100.0) fL MCH 28.8 (27.0-34.0) pg MCHC 33.2 (32.0-36.0) % RDW 13.3 (11.6-17.2) % Plt Count 317 (150-450) th/mm3 MPV 8.4 (7.0-11.0) fL Prelim Diff (Auto) Slide review pending Neut % (Auto) 60.3 (16.0-70.0) % Lymph % (Auto) 29.7 (9.0-44.0) % [place] % (Auto) 7.7 (0.0-8.0) % Eos % (Auto) 1.6 (0.0-4.0) % Baso % (Auto) 0.7 (0.0-2.0) % Neut # (Auto) 6.5 (1.8-7.7) th/mm3 Lymph # (Auto) 3.2 (1.0-4.8) th/mm3 [place] # (Auto) 0.8 (0.0-0.9) th/mm3 Eos # (Auto) 0.2 (0.0-0.4) th/mm3 Baso # (Auto) 0.1 (0.0-0.2) th/mm3 WBC Differential . Diff Scan Auto diff confirmed Differential Comment . Platelet Estimate Normal (Normal) Platelet Morphology Normal (Normal) Sodium 137 (136-145) meq/L Potassium 4.6 (3.5-5.1) meq/L Chloride 105 (98-107) meq/L Carbon Dioxide 23.4 (21.0-32.0) meq/L Anion Gap 9 (5-15) meq/L BUN 20 H (7-18) mg/dL Creatinine 1.07 H (0.50-1.00) mg/dL Estimated GFR 61 L (>89) mL/min Random Glucose 90 (74-106) mg/dL Calcium 8.8 (8.5-10.1) mg/dL Total Bilirubin 0.3 (0.2-1.0) mg/dL AST 31 (15-37) U/L ALT 40 (10-53) U/L Alkaline Phosphatase 69 (45-117) U/L Total Protein 8.1 (6.4-8.2) g/dL Albumin 3.5 (3.4-5.0) g/dL TSH 2.150 (0.358-3.740) uIU/mL Urine Color Yellow (Yellw/Straw) Urine Clarity Hazy H (Clear) Urine pH 5.0 (5.0-8.5) Ur Specific [place] 1.031 (1.002-1.035) Urine Protein 30 H (Neg-Trace) mg/dL Urine Glucose (UA) Negative (Negative) mg/dL Urine Ketones Trace H (Negative) mg/dL Urine Occult Blood Negative (Negative) Urine Nitrate Negative (Negative) Urine Bilirubin Negative (Negative) Urine Urobilinogen 2.0 H (Less than 2) mg/dL Ur Leukocyte Esterase Trace H (Negative) Urine RBC Less than 1 (0-3) /hpf Urine WBC 3 (0-5) /hpf Ur Squamous Epith Cells 2 (0-5) /hpf Hyaline Casts 1 (0-3) /lpf Urine Mucus Few H (Occasional) /lpf Micro UA Comment Culture not ind Ur Microscopic Review Not Reportable Urine Culture Comments Culture not ind Urine Opiates Screen (Neg) Acetaminophen Less than 2.0 L (10.0-30.0) mcg/mL Ur Barbiturates Screen (Neg) Ur Amphetamines Screen (Neg) U Benzodiazepines Scrn (Neg) Urine Cocaine Screen (Neg) U Cannabinoids Screen (Neg) Serum Alcohol Less than 3 (0-5) mg/dL 06/12/18 Range/Units 22:10 WBC (4.0-11.0) th/mm3 RBC (4.00-5.30) mil/mm3 Hgb (11.6-15.3) gm/dL Hct (35.0-46.0) % MCV (80.0-100.0) fL MCH (27.0-34.0) pg MCHC (32.0-36.0) % RDW (11.6-17.2) % Plt Count (150-450) th/mm3 MPV (7.0-11.0) fL Prelim Diff (Auto) Neut % (Auto) (16.0-70.0) % Lymph % (Auto) (9.0-44.0) % [place] % (Auto) (0.0-8.0) % Eos % (Auto) (0.0-4.0) % Baso % (Auto) (0.0-2.0) % Neut # (Auto) (1.8-7.7) th/mm3 Lymph # (Auto) (1.0-4.8) th/mm3 [place] # (Auto) (0.0-0.9) th/mm3 Eos # (Auto) (0.0-0.4) th/mm3 Baso # (Auto) (0.0-0.2) th/mm3 WBC Differential Diff Scan Differential Comment Platelet Estimate (Normal) Platelet Morphology (Normal) Sodium (136-145) meq/L Potassium (3.5-5.1) meq/L Chloride (98-107) meq/L Carbon Dioxide (21.0-32.0) meq/L Anion Gap (5-15) meq/L BUN (7-18) mg/dL Creatinine (0.50-1.00) mg/dL Estimated GFR (>89) mL/min Random Glucose (74-106) mg/dL Calcium (8.5-10.1) mg/dL Total Bilirubin (0.2-1.0) mg/dL AST (15-37) U/L ALT (10-53) U/L Alkaline Phosphatase (45-117) U/L Total Protein (6.4-8.2) g/dL Albumin (3.4-5.0) g/dL TSH (0.358-3.740) uIU/mL Urine Color (Yellw/Straw) Urine Clarity (Clear) Urine pH (5.0-8.5) Ur Specific [place] (1.002-1.035) Urine Protein (Neg-Trace) mg/dL Urine Glucose (UA) (Negative) mg/dL Urine Ketones (Negative) mg/dL Urine Occult Blood (Negative) Urine Nitrate (Negative) Urine Bilirubin (Negative) Urine Urobilinogen (Less than 2) mg/dL Ur Leukocyte Esterase (Negative) Urine RBC (0-3) /hpf Urine WBC (0-5) /hpf Ur Squamous Epith Cells (0-5) /hpf Hyaline Casts (0-3) /lpf Urine Mucus (Occasional) /lpf Micro UA Comment Ur Microscopic Review Urine Culture Comments Urine Opiates Screen Pos H (Neg) Acetaminophen (10.0-30.0) mcg/mL Ur Barbiturates Screen Neg (Neg) Ur Amphetamines Screen Neg (Neg) U Benzodiazepines Scrn Neg (Neg) Urine Cocaine Screen Pos H (Neg) U Cannabinoids Screen Pos H (Neg) Serum Alcohol (0-5) mg/dL Discharge Plan Discharge Disposition Patient Disposition: 30 Still Patient Discharge Condition Condition: Stable Discharge Details Diagnosis: Substance abuse, Opiate dependence, Benzodiazepine abuse, Hallucination, drug- induced, Adjustment reaction with mixed disturbance of emotions and conduct Physicians Team ED Provider: Dick Menon ED Midlevel Provider: Coni Kitchen Primary Care Provider: UNKNOWN, Rxs /Orders / Referrals /Forms Prescriptions: No Action bupropion HCl [Wellbutrin SR] 150 mg Tablet Extended Release 12 Hr 150 mg PO DAILY RF: 0 Discharge Interventions Interventions: Vital Signs Last Done: 06/13/18 00:05 Status ED Status: Medically Cleared
[2018-06-12 21:50] LABS: Baso # (Auto) 0.1 th/mm3 (0.0-0.2); Baso % (Auto) 0.7 % (0.0-2.0); Eos # (Auto) 0.2 th/mm3 (0.0-0.4); Eos % (Auto) 1.6 % (0.0-4.0); Hematocrit 36.1 % (35.0-46.0); Lymph # (Auto) 3.2 th/mm3 (1.0-4.8); Lymph % (Auto) 29.7 % (9.0-44.0); Mean Corpuscular HGB Conc 33.2 % (32.0-36.0); Mean Corpuscular Hemoglobin 28.8 pg (27.0-34.0); Mean Corpuscular Volume 86.6 fL (80.0-100.0); Mean Platelet Volume 8.4 fL (7.0-11.0); Mono # (Auto) 0.8 th/mm3 (0.0-0.9); Mono % (Auto) 7.7 % (0.0-8.0); Neut # (Auto) 6.5 th/mm3 (1.8-7.7); Neut % (Auto) 60.3 % (16.0-70.0); Platelet Count 317 th/mm3 (150-450); Red Blood Count 4.17 mil/mm3 (4.00-5.30); Red Cell Distribution Width 13.3 % (11.6-17.2); White Blood Count 10.8 th/mm3 (4.0-11.0)
[2018-06-12 21:58] LABS: Alanine Aminotransferase 40 U/L (10-53)
[2018-06-12 22:08] LABS: Alkaline Phosphatase 69 U/L (45-117); Total Protein 8.1 g/dL (6.4-8.2)
[2018-06-12 22:10] LABS: Albumin 3.5 g/dL (3.4-5.0); Anion Gap 9 meq/L (5-15); Aspartate Aminotransferase 31 U/L (15-37); Blood Urea Nitrogen 20 mg/dL (7-18); Calcium 8.8 mg/dL (8.5-10.1); Carbon Dioxide 23.4 meq/L (21.0-32.0); Chloride 105 meq/L (98-107); Glomerular Filtration Rate 61 mL/min (>89); Glucose,Random 90 mg/dL (74-106); Potassium 4.6 meq/L (3.5-5.1); Sodium 137 meq/L (136-145)
[2018-06-12] MEDS: Sod Chloride 0.9% Inj 1,000 ML IV.SIG SCH (22:10)
[2018-06-12 22:24] LABS: Bilirubin,Urine Negative (Negative); Clarity,Urine Hazy (Clear); Color,Urine Yellow (Yellw/Straw); Glucose,Urine (UA) Negative (Negative); Hyaline Casts,Urine 1 /lpf (0-3); Leukocyte Esterase,Urine Trace (Negative); Mucus,Urine Few /lpf (Occasional); Nitrite,Urine Negative (Negative); Specific Gravity,Urine 1.031 (1.002-1.035); Squamous Epithelial Cell,Urine 2 /hpf (0-5)
[2018-06-12 22:29] LABS: Amphetamine Screen,Urine Neg (Neg); Barbiturate Screen,Urine Neg (Neg); Cannabinoid Screen,Urine Pos (Neg); Cocaine Screen,Urine Pos (Neg)
[2018-06-12 22:30] LABS: Platelet Estimate Normal (Normal); Platelet Morphology Normal (Normal)
[2018-06-12 22:30] LABS: Opiate Screen,Urine Pos (Neg)
[2018-06-12] MEDS ORDERED: Sod Chloride 0.9% Inj 1,000 ML IV.SIG SCH (23:00)
[2018-06-13] MEDS ORDERED: Bisacodyl 10 MG Supp RECTAL PRN (05:07)
[2018-06-13] MEDS ORDERED: Acetaminophen 325 MG Tablet PO PRN (05:07)
[2018-06-13] MEDS ORDERED: Haloperidol Inj 5 MG/ML Ampul IV.PUSH PRN (05:12)
[2018-06-13] MEDS ORDERED: LORazepam 1 MG Tablet PO PRN (05:12)
[2018-06-13] MEDS ORDERED: Dexmedetomidine Inj 200 MCG/2 ML Vial IV.PUSH ONE (05:13)
[2018-06-13] MEDS ORDERED: Dexmedetomidine Inj 200 MCG in Sodium Chlor 0.9% Inj 48 ML IV.CONT PRN (05:13)
--- NOTE | 2018-06-13 05:33 | P.HPCC ---
History of Present Illness Primary Care Physician: UNKNOWN History of Present Illness: 27-year-old female with history of polysubstance abuse, opiate dependency, bipolar disorder, presents after she was started on new medications 2 weeks ago. They include Seroquel, lamotrigine, Wellbutrin. Patient initially said that about 7 days after taking them, she began to feel high and having hallucinations. She feels like she is tripping on acid when she is not doing acid. Patient has also been unable to sleep. She denied any chest pain or tightness. No difficulty breathing. She has had no fever chills. Patient also uses IV opiates, cocaine, smokes marijuana. Her mother is requesting help with detox. Patient also said that she wants help. At around 0335 the patient patient started yelling incomprehensible words within the room. She became diaphoretic, tachycardic but otherwise her vital signs remain stable. She was given 1 more milligram of Ativan. After several attempts to stabilize this patient and assist her through her symptoms, when she has received a total of 13 mg of IV Ativan, 0.1 mg clonidine, 50 mg of Benadryl, and 10 mg of Zyprexa she continues to present symptoms of severe withdrawal requiring admission to ICU with a CIWA protocol and Precedex drip. Inpatient Certification: I certify that the inpatient services were ordered in accordance with Medicare regulations governing the order. This includes certification that hospital inpatient services are reasonable and necessary and in the case of services not specified as inpatient-only under 42 CFR 419.22(n), that they are appropriately provided as inpatient services in accordance to with the 2-midnight benchmark under 43 CFR 412.3(e) Estimated Total Length of Stay (Days): 5 Plans for Post Hospital Care: Not yet determined Review of Systems unobtainable due to mental condition PMFSH - History History Provided By: Patient - Medical / Surgical Hx Neg / Unobtainable Medical Problems Denied: Unable to Obtain Surgical History: Unable to Obtain - Medical History Medical History: Medical History (Last Reviewed 06/13/18 @ 16:59 by Park Flores) Patient denies medical problems (Acute) Anxiety Depression PTSD (post-traumatic stress disorder) - Surgical History Surgical History: Surgical History (Last Reviewed 06/13/18 @ 16:59 by Park Flores) No history of previous surgery (Acute) - Tobacco History Tobacco Use In Past 30 Days: Yes Smoking Status: Current every day smoker Tobacco Type: Cigarettes - Alcohol History How Often Do You Have a Drink Containing Alcohol: Never - Substance Use History Substance History: Active Abuse - Substance Use Type Heroin Status: Active Route Used: Inhalation, Intravenously Last Used: TODAY Reason for Use: Get High - Travel History Recent Travel in the [place] Within the Last 8 Weeks: No Recent Travel Out of the Country Within the Last 8 Weeks: No - Immunization History Tetanus Immunization: <5 Years Hx Influenza Vaccine This Season: No Medications and Allergies Active Medications: Active Medications Acetaminophen (Tylenol) 650 mg PO Q6H PRN PRN Reason: PAIN 1-10 AND/OR FEVER >101F Al Hydroxide/Mg Hydroxide (Milk Of Magnnaresh Liq) 30 ml PO Q12H PRN PRN Reason: Mild Constipation Albuterol (Duoneb Neb (Prn)) 1 ampul NEB Q2HR NEB PRN PRN Reason: WHEEZING Bisacodyl (Dulcolax Supp) 10 mg RECTAL DAILY PRN PRN Reason: SEVERE CONSITIPATION Bupropion HCl (Wellbutrin Sr) 150 mg PO DAILY [facility] Chlorhexidine Gluconate (Chlorhexidine 2% Cloth) 3 pack TOPICAL DAILY@0400 LESLIE Stop: 06/19/18 03:59 Chlorhexidine Gluconate (Chlorhexidine 2% Cloth) 3 pack TOPICAL DAILY@0400 PRN PRN Reason: Extra cloth needed Stop: 06/19/18 03:59 Enoxaparin Sodium (Lovenox Inj) 40 mg SQ Q24H LESLIE Flumazenil (Romazecon Inj) 0.2 mg IV.PUSH Q1M PRN PRN Reason: OVERSEDATION Haloperidol Lactate (Haldol Inj) 1 mg IV.PUSH Q15M PRN PRN Reason: for severe agitation Sodium Chloride (Ns Inj) 1,000 mls @ 0 mls/hr IV.SIG BOLUS LESLIE Last Infusion: 06/12/18 23:43 Dose: Infused Sodium Chloride (Ns Inj) 1,000 mls @ 0 mls/hr IV.SIG BOLUS LESLIE Last Infusion: 06/13/18 01:34 Dose: Infused Sodium Chloride (Ns Inj) 1,000 mls @ 184 mls/hr IV.CONT .Q5H27M [facility] Dexmedetomidine HCl 200 mcg/ (Sodium Chloride) 50 mls @ 3.26 mls/hr IV.CONT TITRATE PRN; Protocol PRN Reason: Per Protocol Lactulose (Lactulose Liq) 30 ml PO DAILY PRN PRN Reason: SEVERE CONSITIPATION Lorazepam (Ativan) 1 mg PO Q4H PRN PRN Reason: for CIWA 8-10 Lorazepam (Ativan) 2 mg PO Q2H PRN PRN Reason: for CIWA 11-14 Lorazepam (Ativan Inj) 2 mg IV.PUSH Q2H PRN PRN Reason: for CIWA 11-14 Lorazepam (Ativan Inj) 2 mg IV.PUSH Q1H PRN PRN Reason: for CIWA 15-20 Lorazepam (Ativan Inj) 2 mg IV.PUSH Q15M PRN PRN Reason: for CIWA > 20 Lorazepam (Ativan Inj) 1 mg IV.PUSH Q4H PRN PRN Reason: for CIWA 8-10 Metoclopramide HCl (Reglan Inj) 5 mg IV.PUSH Q6HR LESLIE; Protocol Morphine Sulfate (Morphine Inj) 2 mg IV.PUSH Q2H PRN PRN Reason: PAIN SCALE 6 TO 10 Ondansetron HCl (Zofran Inj) 4 mg IV.PUSH Q6H PRN PRN Reason: NAUSEA OR VOMITING Senna/Docusate Sodium (Jocelin-Colace) 1 tab PO BID LESLIE Sennosides (Senokot) 17.2 mg PO Q12H PRN PRN Reason: Moderate Constipation Sodium Chloride (Ns Flush) 2 ml IV.FLUSH BID LESLIE Sodium Chloride (Ns Flush) 2 ml IV.FLUSH PRN PRN PRN Reason: FLUSH AFTER USING IV ACCESS Allergies Allergy/AdvReac Type Severity Reaction Status Date / Time *MDRO Multi-Drug Resistant AdvReac Unknown Uncoded 08/16/17 19:12 Organism Home Medications Medication Instructions Recorded Confirmed Type bupropion HCl [Wellbutrin SR] 150 mg PO DAILY 05/08/18 06/13/18 History Results - Labs CBC & Chem 7: 06/12/18 21:38 06/12/18 21:38 Labs: Short CBC 06/12/18 Range/Units 21:38 WBC 10.8 (4.0-11.0) th/mm3 Hgb 12.0 (11.6-15.3) gm/dL Hct 36.1 (35.0-46.0) % Plt Count 317 (150-450) th/mm3 BMP 06/12/18 21:38 Sodium 137 Potassium 4.6 Chloride 105 Carbon Dioxide 23.4 BUN 20 H Creatinine 1.07 H Calcium 8.8 Liver Function 06/12/18 Range/Units 21:38 Total Bilirubin 0.3 (0.2-1.0) mg/dL AST 31 (15-37) U/L ALT 40 (10-53) U/L Alkaline Phosphatase 69 (45-117) U/L Albumin 3.5 (3.4-5.0) g/dL Urine 06/12/18 Range/Units 22:10 Urine Color Yellow (Yellw/Straw) Urine Clarity Hazy H (Clear) Urine pH 5.0 (5.0-8.5) Ur Specific [place] 1.031 (1.002-1.035) Urine Protein 30 H (Neg-Trace) mg/dL Urine Glucose (UA) Negative (Negative) mg/dL Exam Vital signs: Vital Signs 06/12/18 20:24 06/13/18 00:05 06/13/18 03:45 Temperature 98.8 F Pulse Rate 107 H 110 H 85 Respiratory Rate 20 24 18 Blood Pressure 122/85 108/70 Pulse Oximetry 97 98 94 L 06/13/18 05:09 Temperature Pulse Rate 68 Respiratory Rate 18 Blood Pressure 110/78 Pulse Oximetry 100 Intake & Output 06/12/18 06/12/18 06/13/18 06:59 18:59 06:59 Intake Total 1999 Balance 1999 Weight 65.317 kg Intake: IV 1999 NS Inj 1,000 ML @ Wide Open IV. 1999 SIG BOLUS [facility] Rx#:[id number] - Constitutional severe distress - Routine HEENT Exam Head: Present: normocephalic, atraumatic Eye: Present: PERRL ENT: Present: mucous membranes moist - Routine Neck Exam Present: supple, full ROM. Absent: JVD, carotid bruit - Routine Respiratory Exam Absent: accessory muscle use, rhonchi, stridor, wheezes - Routine Cardiovascular Exam Present: RRR, S1, S2, tachycardia - Routine Abdominal Exam Present: soft, normoactive bowel sounds. Absent: tenderness, distended - Routine Extremities Exam Absent: cyanosis, clubbing, edema - Routine Skin Exam Present: intact. Absent: cyanosis, erythema - Routine Neurological Exam Present: altered mental status, moving all extremities Caprini VTE Risk Assessment Caprini VTE Risk Assessment: Moderate/High Risk (score >= 2) Caprini Risk Assessment Model: Point Value = 1 Point Value = 2 Point Value = 3 Point Value = 5 Age 41-60 Minor surgery BMI > 25 kg/m2 Swollen legs Varicose veins or History of unexplained or recurrent spontaneous Oral contraceptives or hormone replacement Sepsis (< 1 month) Serious lung disease, including pneumonia (< 1 month) Abnormal pulmonary function Acute myocardial infarction Congestive heart failure (< 1 month) History of inflammatory bowel disease Medical patient at bed rest Age 61-74 Arthroscopic surgery Major open surgery (> 45 min) Laparoscopic surgery (> 45 min) Malignancy Confined to bed (> 72 hours) Immobilizing plaster cast Central venous access Age >= 75 History of VTE Family history of VTE Factor V Leiden Prothrombin [id number] Lupus anticoagulant Anticardiolipin antibodies Elevated serum homocysteine Heparin-induced thrombocytopenia Other congenital or acquired thrombophilia Stroke (< 1 month) Elective arthroplasty Hip, pelvis, or leg fracture Acute spinal cord injury (< 1 month) Prophylaxis Regimen: Total Risk Factor Score Risk Level Prophylaxis Regimen 0-1 Low Early ambulation 2 Moderate Order ONE of the following: *Sequential Compression Device (SCD) *Heparin 5000 units SQ BID 3-4 Higher Order ONE of the following medications: *Heparin 5000 units SQ TID *Enoxaparin/Lovenox 40 mg SQ daily (WT < 150 kg, CrCl > 30 mL/min) *Enoxaparin/Lovenox 30 mg SQ daily (WT < 150 kg, CrCl > 10-29 mL/min) *Enoxaparin/Lovenox 30 mg SQ BID (WT < 150 kg, CrCl > 30 mL/min) AND/OR *Sequential Compression Device (SCD) 5 or more Highest Order ONE of the following medications: *Heparin 5000 units SQ TID (Preferred with Epidurals) *Enoxaparin/Lovenox 40 mg SQ daily (WT < 150 kg, CrCl > 30 mL/min) *Enoxaparin/Lovenox 30 mg SQ daily (WT < 150 kg, CrCl > 10-29 mL/min) *Enoxaparin/Lovenox 30 mg SQ BID (WT < 150 kg, CrCl > 30 mL/min) AND *Sequential Compression Device (SCD) Assessment and Plan - Assessment and Plan Plan: Altered mental status -Withdrawal from polysubstance abuse -Admit to ICU -Telemetry -CIWA protocol -Precedex drips as needed -Follow-up drug screen toxicology -Monitor for airway protection and possible intubation Tachycardia -Due to above -Supportive care Depressions and PTSD -Continue Wellbutrin Acute kidney injury -Dehydration -Aggressive IV fluid resuscitation DVT GI prophylaxis -Teds SCDs -Subcu Lovenox -Pepcid 35 minutes of critical care
[2018-06-13] MEDS: Sod Chloride 0.9% Inj 1,000 ML IV.CONT SCH ×3 (05:45→22:34)
[2018-06-13] MEDS: Enoxaparin Inj 40 MG/0.4 ML Syringe SQ SCH (05:45)
[2018-06-13] MEDS: Dexmedetomidine Inj 1,000 MCG in Sodium Chlor 0.9% Inj 240 ML IV.CONT PRN ×2 (06:51→22:34)
[2018-06-13] MEDS ORDERED: Magnesium Oxide 400 MG Tablet PO PRN (07:33)
[2018-06-13] MEDS ORDERED: Potassium Chloride 25 MEQ Effervescent Tablet PO PRN (07:33)
[2018-06-13] MEDS ORDERED: Potassium Phosphate 500 MG Soluble Tablet PO PRN ×2 (07:33)
[2018-06-13] MEDS ORDERED: Sodium Phosphate Inj 30 MMOL in Sodium Chlor 0.9% Inj 250 ML IV.SIG PRN (07:33)
[2018-06-13] MEDS ORDERED: Potassium Chlor 40 mEq Premix 40 MEQ/100 ML PIGGYBACK IV.SIG PRN ×2 (07:33)
[2018-06-13] MEDS ORDERED: Potassium Chlor 20 mEq Premix 20 MEQ/100 ML PIGGYBACK IV.SIG PRN ×2 (07:33)
[2018-06-13] MEDS ORDERED: Potassium Phosphate Inj 30 MMOL in Sodium Chlor 0.9% Inj 250 ML IV.SIG PRN (07:33)
[2018-06-13] MEDS ORDERED: Magnesium Sulfate Inj 2 GM in Sodium Chlor 0.9% Inj 96 ML IV.SIG PRN (07:33)
[2018-06-13] MEDS ORDERED: Dextrose 50% in Water 50 ML Vial IV.PUSH PRN (07:33)
[2018-06-13] MEDS ORDERED: Magnesium Sulfate Inj 4 GM in Sodium Chlor 0.9% Inj 92 ML IV.SIG PRN (07:33)
--- NOTE | 2018-06-13 07:38 | P.PNCC ---
Subjective Subjective Remarks/Hospital Course: 27-year-old female with history of polysubstance abuse, opiate dependency, bipolar disorder, presents after she was started on new medications 2 weeks ago. They include Seroquel, lamotrigine, Wellbutrin. Patient initially said that about 7 days after taking them, she began to feel high and having hallucinations. She feels like she is tripping on acid when she is not doing acid. Patient has also been unable to sleep. She denied any chest pain or tightness. No difficulty breathing. She has had no fever chills. Patient also uses IV opiates, cocaine, smokes marijuana. Her mother is requesting help with detox. Patient also said that she wants help. At around 0335 the patient patient started yelling incomprehensible words within the room. She became diaphoretic, tachycardic but otherwise her vital signs remain stable. She was given 1 more milligram of Ativan. After several attempts to stabilize this patient and assist her through her symptoms, when she has received a total of 13 mg of IV Ativan, 0.1 mg clonidine, 50 mg of Benadryl, and 10 mg of Zyprexa she continues to present symptoms of severe withdrawal requiring admission to ICU with a CIWA protocol and Precedex drip. Subjective 06/13: Afebrile. Received multi antipsychotics and sedatives overnight. Dexmedetomidine drip ordered. Roth act. Objective Vital Signs / I&O: Vital Signs 06/12/18 20:24 06/13/18 00:05 06/13/18 03:45 Temperature 98.8 F Pulse Rate 107 H 110 H 85 Respiratory Rate 20 24 18 Blood Pressure 122/85 108/70 Pulse Oximetry 97 98 94 L 06/13/18 05:09 06/13/18 06:39 Temperature 97.7 F Pulse Rate 68 70 Respiratory Rate 18 16 Blood Pressure 110/78 117/88 Pulse Oximetry 100 100 Intake & Output 06/12/18 06/13/18 06/13/18 18:59 06:59 18:59 Intake Total 1999 Balance 1999 Weight 55.4 kg Intake: IV 1999 NS Inj 1,000 ML @ Wide Open IV. 1999 SIG BOLUS [facility] Rx#:[id number] Other: Weight On Admission 55.4 kg Result Diagrams: 06/12/18 21:38 06/12/18 21:38 Objective Remarks: GENERAL: 27-year-old female currently resting in bed in no acute distress SKIN: Warm and dry. Garcia HEAD: Atraumatic. Normocephalic. EYES: Pupils equal and round. No scleral icterus. No injection or drainage. ENT: No nasal bleeding or discharge. Mucous membranes pink and moist. NECK: Trachea midline. No JVD. CARDIOVASCULAR: Regular rate and rhythm. S1, S2. No S4. RESPIRATORY: No accessory muscle use. Clear to auscultation. Breath sounds equal bilaterally. GASTROINTESTINAL: Abdomen soft, non-tender, nondistended. Hepatic and splenic margins not palpable. MUSCULOSKELETAL: Extremities without clubbing, cyanosis, or edema. No obvious deformities. NEUROLOGICAL: Awake and alert. No obvious cranial nerve deficits. Motor grossly within normal limits. Five out of 5 muscle strength in the arms and legs. Slurred speech. PSYCHIATRIC: Inappropriate mood and affect; insight and judgment not normal Assessment and Plan - Assessment and Plan Plan: Neuro/Psych: Acute delirium likely secondary to polysubstance withdrawal Depressive disorder NOS Anxiety disorder NOS Urine toxicology screen positive for THC, cocaine and opiate Holding home medications of quetiapine, lamotrigine and bupropion. Receiving as needed lorazepam, haloperidol and will initiate dexmedetomidine drip if indicated Received multiple doses of clonidine, diphenhydramine and lorazepam in the ED along with IM olanzapine Roth act. Consult when appropriate Placed on vitamin bag daily 3 days CV: Currently on normal saline at 100 cc an hour Not requiring vasopressors and/or antihypertensives Resp: Nasal cannula is indicated to maintain saturations greater than or equal to 92% Incentive spirometry while awake GI: Advance diet as tolerated Famotidine for GI prophylaxis Docusate sodium senna 1 tablet twice daily for bowel regimen : No indication for Cullen catheter Endo: Sliding scale insulin with Accu-Cheks to maintain euglycemia/aspart insulin low regimen every 6 hours TSH was 2.15 Renal: Creatinine within normal limits Monitor urine output Accurate I's and O's Heme: CBC within normal limits. ID: Monitor for signs and symptomatology infection UA negative Check blood cultures 2 MSK: PT evaluate and treat FEN: Replace electrolytes as clinically indicated per ICU electrolyte protocol Currently on normal saline at 100 cc an hour Access -Utilize peripheral IV. Central line if indicated Prophylaxis -GI -famotidine -DVT-SCDs plus/placed on enoxaparin by overnight pig lead melter helper. Level 2 follow-up Code Status: Full code Discussed Condition With: [facility] RN. Patient. Care plan discussed and all questions answered.
[2018-06-13] MEDS: Multivitamin Inj 10 ML, Thiamine Inj 100 MG, Folic Acid Inj 1 MG in Sodium Chlor 0.9% I... IV.SIG SCH (08:58)
[2018-06-13] MEDS: Famotidine PF Inj 20 MG/2 ML Vial IV.PUSH SCH ×2 (08:58→20:18)
[2018-06-13] MEDS: Senna/Docusate Sodium 8.6/50 MG Tablet PO SCH ×2 (08:59→20:19)
[2018-06-13] MEDS: buPROPion 150 MG 12 HR Tablet PO SCH (08:59)
[2018-06-13 09:30] LABS: Lipase 51 U/L (73-393); Magnesium 2.3 mg/dL (1.5-2.5); Phosphorus 3.6 mg/dL (2.5-4.9)
[2018-06-13 09:33] LABS: Creatine Kinase 493 U/L (26-192)
[2018-06-13 09:46] LABS: CKMB Percent 1.1 % (0.0-4.0); Creatine Kinase MB 5.4 ng/mL (0.5-3.6)
--- NOTE | 2018-06-13 10:54 | CT ---
EXAM DATE: 06/13/2018 10:51 AM EDT AGE/SEX: 27 years / Female INDICATIONS: Altered mental status. CLINICAL DATA: This is the patient's initial encounter. Patient reports that signs and symptoms have been present for 1 day and indicates a pain score of 0/10. MEDICAL/SURGICAL HISTORY: None. None. RADIATION DOSE: 35.14 CTDI (mGy) COMPARISON: [facility], CT BRAIN W/O CONTRAST, 09/21/2015. . TECHNIQUE: CT of the head without contrast. Using automated exposure control and adjustment of the mA and/or kV according to patient size, radiation dose was kept as low as reasonably achievable to ob tain optimal diagnostic quality images. DICOM format image data is available electronically for revi ew and comparison. FINDINGS: Cerebrum: The ventricles are normal for age. No evidence of midline shift, mass lesion, hemorrhage or acute infarction. No extraaxial fluid collections are seen. Posterior Fossa: The cerebellum and brainstem are intact. The 4th ventricle is midline. The cerebe llopontine angle is unremarkable. Extracranial: The visualized portion of the orbits is intact. Skull: The calvaria is intact. No evidence of skull fracture. CONCLUSION: 1. Negative CT Head non contrast. 2. No evidence of acute infarct, hemorrhage, mass or edema. . Electronically signed by: Dave Bazzi MD 06/13/2018 10:53 AM EDT
[2018-06-13] MEDS: Insulin NovoLOG Aspart Correctional Sugar Inj SQ SCH ×2 (12:04→18:58)
[2018-06-13 15:35] LABS: Activated Partial Thrombo Time 32.4 sec (24.3-30.1); INR 1.1 Ratio; Prothrombin Time 10.9 sec (9.8-11.6)
[2018-06-14] MEDS ORDERED: Chlorhexidine Gluconate 2% 1 Pack (2 Cloths) TOPICAL PRN (04:00)
[2018-06-14] MEDS: Chlorhexidine Gluconate 2% 1 Pack (2 Cloths) TOPICAL SCH (05:18)
[2018-06-14] MEDS: Insulin NovoLOG Aspart Correctional Sugar Inj SQ SCH ×4 (05:18→18:28)
[2018-06-14] MEDS: Enoxaparin Inj 40 MG/0.4 ML Syringe SQ SCH (05:20)
[2018-06-14] MEDS: Famotidine PF Inj 20 MG/2 ML Vial IV.PUSH SCH ×2 (09:05→20:42)
[2018-06-14] MEDS: Senna/Docusate Sodium 8.6/50 MG Tablet PO SCH ×2 (09:06→20:42)
[2018-06-14] MEDS: buPROPion 150 MG 12 HR Tablet PO SCH (09:06)
[2018-06-14 09:57] LABS: Baso % (Auto) 0.5 % (0.0-2.0); Eos # (Auto) 0.1 th/mm3 (0.0-0.4); Eos % (Auto) 1.1 % (0.0-4.0); Hematocrit 35.4 % (35.0-46.0); Hemoglobin 11.8 gm/dL (11.6-15.3); Lymph % (Auto) 27.1 % (9.0-44.0); Mean Corpuscular HGB Conc 33.4 % (32.0-36.0); Mean Corpuscular Hemoglobin 28.7 pg (27.0-34.0); Mean Corpuscular Volume 85.9 fL (80.0-100.0); Mean Platelet Volume 8.2 fL (7.0-11.0); Mono # (Auto) 0.3 th/mm3 (0.0-0.9); Mono % (Auto) 3.9 % (0.0-8.0); Neut # (Auto) 4.9 th/mm3 (1.8-7.7); Neut % (Auto) 67.4 % (16.0-70.0); Platelet Count 337 th/mm3 (150-450); Red Blood Count 4.12 mil/mm3 (4.00-5.30); Red Cell Distribution Width 13.2 % (11.6-17.2); White Blood Count 7.3 th/mm3 (4.0-11.0)
[2018-06-14] MEDS: Sod Chloride 0.9% Inj 1,000 ML IV.CONT SCH ×2 (10:05→18:32)
[2018-06-14 10:06] LABS: Activated Partial Thrombo Time 32.1 sec (24.3-30.1); INR 1.1 Ratio
[2018-06-14 10:15] LABS: Anion Gap 11 meq/L (5-15); Aspartate Aminotransferase 43 U/L (15-37); Blood Urea Nitrogen 15 mg/dL (7-18); Calcium 8.2 mg/dL (8.5-10.1); Carbon Dioxide 19.4 meq/L (21.0-32.0); Chloride 107 meq/L (98-107); Glomerular Filtration Rate Greater Than 89 mL/min (>89); Glucose,Random 68 mg/dL (74-106); Magnesium 2.1 mg/dL (1.5-2.5); Potassium 4.4 meq/L (3.5-5.1); Sodium 137 meq/L (136-145)
[2018-06-14 10:19] LABS: Alanine Aminotransferase 39 U/L (10-53); Alkaline Phosphatase 68 U/L (45-117); Phosphorus 3.5 mg/dL (2.5-4.9); Total Protein 6.8 g/dL (6.4-8.2)
--- NOTE | 2018-06-14 12:16 | P.PNCC ---
Subjective Subjective Remarks/Hospital Course: 27-year-old female with history of polysubstance abuse, opiate dependency, bipolar disorder, presents after she was started on new medications 2 weeks ago. They include Seroquel, lamotrigine, Wellbutrin. Patient initially said that about 7 days after taking them, she began to feel high and having hallucinations. She feels like she is tripping on acid when she is not doing acid. Patient has also been unable to sleep. She denied any chest pain or tightness. No difficulty breathing. She has had no fever chills. Patient also uses IV opiates, cocaine, smokes marijuana. Her mother is requesting help with detox. Patient also said that she wants help. At around 0335 the patient patient started yelling incomprehensible words within the room. She became diaphoretic, tachycardic but otherwise her vital signs remain stable. She was given 1 more milligram of Ativan. After several attempts to stabilize this patient and assist her through her symptoms, when she has received a total of 13 mg of IV Ativan, 0.1 mg clonidine, 50 mg of Benadryl, and 10 mg of Zyprexa she continues to present symptoms of severe withdrawal requiring admission to ICU with a CIWA protocol and Precedex drip. 06/13: Afebrile. Received multi antipsychotics and sedatives overnight. Dexmedetomidine drip ordered. Roth act. Subjective 06/14: Weaning off successfully drip. More awake alert. Will consult psychiatry under Roth act. Requesting diet. Objective Vital Signs / I&O: Vital Signs 06/13/18 13:00 06/13/18 14:00 06/13/18 15:00 Temperature Pulse Rate 69 61 60 Respiratory Rate 23 22 Blood Pressure 110/63 116/85 119/82 Pulse Oximetry 99 99 99 06/13/18 16:00 06/13/18 17:00 06/13/18 18:00 Temperature Pulse Rate 58 L 58 L 60 Respiratory Rate 19 21 22 Blood Pressure 128/92 H 130/92 H 130/93 H Pulse Oximetry 98 99 98 06/13/18 19:00 06/13/18 19:02 06/13/18 20:00 Temperature 97.7 F Pulse Rate 51 L 53 L 57 L Respiratory Rate 16 19 23 Blood Pressure 143/102 H 142/107 H 151/101 H Pulse Oximetry 100 99 100 09/14/18 21:00 06/13/18 21:02 06/13/18 22:00 Temperature Pulse Rate 56 L 56 L 53 L Respiratory Rate 20 20 17 Blood Pressure 146/100 H 132/95 H 132/89 Pulse Oximetry 95 95 06/13/18 23:00 06/14/18 00:00 06/14/18 01:00 Temperature Pulse Rate 52 L 54 L 51 L Respiratory Rate 18 23 21 Blood Pressure 142/90 H 147/100 H 144/92 H Pulse Oximetry 89 L 97 06/14/18 02:00 06/14/18 03:00 06/14/18 04:00 Temperature Pulse Rate 51 L 51 L 43 L Respiratory Rate 25 H 22 23 Blood Pressure 131/84 139/78 Pulse Oximetry 96 96 06/14/18 04:01 06/14/18 05:00 06/14/18 05:01 Temperature 98.8 F Pulse Rate 45 L 47 L 47 L Respiratory Rate 24 23 23 Blood Pressure 156/77 H 125/88 Pulse Oximetry 91 L 06/14/18 06:00 06/14/18 07:00 06/14/18 08:00 Temperature 98.3 F 98.3 F Pulse Rate 50 L 64 59 L Respiratory Rate 33 H 29 H 21 Blood Pressure 137/75 123/74 137/92 H Pulse Oximetry 95 97 98 06/14/18 09:00 06/14/18 10:00 06/14/18 11:00 Temperature 98.1 F Pulse Rate 57 L 66 65 Respiratory Rate 20 31 H 27 H Blood Pressure 133/82 128/77 124/72 Pulse Oximetry 94 L 95 95 Intake & Output 06/13/18 06/14/18 06/14/18 18:59 06:59 18:59 Intake Total 1511.2 / 1511.2 1000 / 1000 Output Total 2400 / 2400 1500 / 1500 Balance -888.8 / -888.8 -500 / -500 Weight 65.6 kg Intake: IV 1511.2 / 1511.2 1000 / 1000 NS Inj 1,000 ML @ 100 mls/hr IV 1000 / 1000 1000 / 1000 .CONT .Q10H [facility] Rx#:[id number] MVI-12 Inj 10 ML Thiamine Inj 511.2 / 511.2 100 MG Folvite Inj 1 MG In NS Inj 500 ML @ 125 mls/hr IV.SIG Q24H [facility] Rx#:[id number] Oral 0 / 0 Output: Urine Amount (Catheter) 2400 / 2400 1500 / 1500 Straight 2400 / 2400 1500 / 1500 Other: # Bowel Movements 0 Result Diagrams: 06/14/18 09:33 06/14/18 09:33 Imaging: Head CT 06/13/18 00:00 CONCLUSION: 1. Negative CT Head non contrast. 2. No evidence of acute infarct, hemorrhage, mass or edema. . Objective Remarks: GENERAL: 27-year-old female currently resting in bed in no acute distress SKIN: Warm and dry. Garcia HEAD: Atraumatic. Normocephalic. EYES: Pupils equal and round. No scleral icterus. No injection or drainage. ENT: No nasal bleeding or discharge. Mucous membranes pink and moist. NECK: Trachea midline. No JVD. CARDIOVASCULAR: Regular rate and rhythm. S1, S2. No S4. RESPIRATORY: No accessory muscle use. Clear to auscultation. Breath sounds equal bilaterally. GASTROINTESTINAL: Abdomen soft, non-tender, nondistended. Hepatic and splenic margins not palpable. MUSCULOSKELETAL: Extremities without clubbing, cyanosis, or edema. No obvious deformities. NEUROLOGICAL: Awake and alert. No obvious cranial nerve deficits. Motor grossly within normal limits. Five out of 5 muscle strength in the arms and legs. Slurred speech. PSYCHIATRIC: Inappropriate mood and affect; insight and judgment not normal Assessment and Plan - Assessment and Plan Plan: Neuro/Psych: Acute delirium likely secondary to polysubstance withdrawal Depressive disorder NOS Anxiety disorder NOS Urine toxicology screen positive for THC, cocaine and opiate Holding home medications of quetiapine, lamotrigine and bupropion. Receiving as needed lorazepam, haloperidol and will initiate dexmedetomidine drip if indicated Received multiple doses of clonidine, diphenhydramine and lorazepam in the ED along with IM olanzapine Roth act. Consult psychiatry today when appropriate Placed on vitamin bag daily [address] brain shows no acute intracranial findings Off dexmedetomidine drip to off today. Currently at 0.4 CV: Currently on normal saline at 100 cc an hour Not requiring vasopressors and/or antihypertensives Resp: Nasal cannula is indicated to maintain saturations greater than or equal to 92% Incentive spirometry while awake GI: Advance diet as tolerated Famotidine for GI prophylaxis Docusate sodium senna 1 tablet twice daily for bowel regimen : No indication for Cullen catheter Endo: Sliding scale insulin with Accu-Cheks to maintain euglycemia/aspart insulin low regimen every 6 hours TSH was 2.15 Renal: Creatinine within normal limits Monitor urine output Accurate I's and O's Heme: CBC within normal limits. ID: Monitor for signs and symptomatology infection UA negative Check blood cultures 2 MSK: PT evaluate and treat FEN: Replace electrolytes as clinically indicated per ICU electrolyte protocol Currently on normal saline at 100 cc an hour Access -Utilize peripheral IV. Central line if indicated Prophylaxis -GI -famotidine -DVT-SCDs plus/placed on enoxaparin by overnight project manager senior. Level 2 follow-up
[2018-06-14] MEDS: Sod Chloride 0.9% Inj 1,000 ML IV.SIG SCH ×2 (12:24→22:17)
[2018-06-14] MEDS: Multivitamin Inj 10 ML, Thiamine Inj 100 MG, Folic Acid Inj 1 MG in Sodium Chlor 0.9% I... IV.SIG SCH (12:24)
[2018-06-14] MEDS: Morphine Inj 4 MG/ML Vial IV.PUSH PRN ×4 (14:32→20:42)
[2018-06-14] MEDS: Dexmedetomidine Inj 1,000 MCG in Sodium Chlor 0.9% Inj 240 ML IV.CONT PRN (22:16)
--- NOTE | 2018-06-14 22:38 | ECG ---
Date Performed: 06/12/2018 Time Performed: 21:36:47 PTAGE: 27 years EKG: Sinus rhythm WITH SHORT TN INTERVAL BORDERLINE ECG PREVIOUS TRACING : 09/10/2016 07.31 DOCTOR: Corrina Arango Interpretating Date/Time 06/14/2018 22:28:56
[2018-06-15] MEDS: Insulin NovoLOG Aspart Correctional Sugar Inj SQ SCH ×4 (00:11→19:22)
[2018-06-15] MEDS: Morphine Inj 4 MG/ML Vial IV.PUSH PRN ×9 (00:33→19:37)
[2018-06-15] MEDS: Chlorhexidine Gluconate 2% 1 Pack (2 Cloths) TOPICAL SCH (06:34)
[2018-06-15] MEDS: Enoxaparin Inj 40 MG/0.4 ML Syringe SQ SCH (06:34)
[2018-06-15 07:06] LABS: Baso % (Auto) 0.7 % (0.0-2.0); Eos # (Auto) 0.1 th/mm3 (0.0-0.4); Eos % (Auto) 2.8 % (0.0-4.0); Hematocrit 30.6 % (35.0-46.0); Hemoglobin 10.3 gm/dL (11.6-15.3); Lymph # (Auto) 1.8 th/mm3 (1.0-4.8); Lymph % (Auto) 35.9 % (9.0-44.0); Mean Corpuscular HGB Conc 33.8 % (32.0-36.0); Mean Corpuscular Hemoglobin 28.9 pg (27.0-34.0); Mean Corpuscular Volume 85.6 fL (80.0-100.0); Mono # (Auto) 0.5 th/mm3 (0.0-0.9); Mono % (Auto) 9.1 % (0.0-8.0); Neut # (Auto) 2.6 th/mm3 (1.8-7.7); Neut % (Auto) 51.5 % (16.0-70.0); Platelet Count 295 th/mm3 (150-450); Red Blood Count 3.57 mil/mm3 (4.00-5.30); White Blood Count 5.1 th/mm3 (4.0-11.0)
[2018-06-15 07:18] LABS: Albumin 2.6 g/dL (3.4-5.0); Anion Gap 8 meq/L (5-15); Aspartate Aminotransferase 28 U/L (15-37); Blood Urea Nitrogen 10 mg/dL (7-18); Calcium 7.8 mg/dL (8.5-10.1); Carbon Dioxide 21.7 meq/L (21.0-32.0); Chloride 112 meq/L (98-107); Glomerular Filtration Rate 89 mL/min (>89); Glucose,Random 118 mg/dL (74-106); Magnesium 2.2 mg/dL (1.5-2.5); Potassium 3.7 meq/L (3.5-5.1); Sodium 142 meq/L (136-145)
[2018-06-15 07:20] LABS: Alanine Aminotransferase 33 U/L (10-53); Phosphorus 2.9 mg/dL (2.5-4.9)
[2018-06-15 07:22] LABS: Alkaline Phosphatase 56 U/L (45-117); Total Protein 6.1 g/dL (6.4-8.2)
--- NOTE | 2018-06-15 07:51 | P.PNCC ---
Subjective Subjective Remarks/Hospital Course: 27-year-old female with history of polysubstance abuse, opiate dependency, bipolar disorder, presents after she was started on new medications 2 weeks ago. They include Seroquel, lamotrigine, Wellbutrin. Patient initially said that about 7 days after taking them, she began to feel high and having hallucinations. She feels like she is tripping on acid when she is not doing acid. Patient has also been unable to sleep. She denied any chest pain or tightness. No difficulty breathing. She has had no fever chills. Patient also uses IV opiates, cocaine, smokes marijuana. Her mother is requesting help with detox. Patient also said that she wants help. At around 0335 the patient patient started yelling incomprehensible words within the room. She became diaphoretic, tachycardic but otherwise her vital signs remain stable. She was given 1 more milligram of Ativan. After several attempts to stabilize this patient and assist her through her symptoms, when she has received a total of 13 mg of IV Ativan, 0.1 mg clonidine, 50 mg of Benadryl, and 10 mg of Zyprexa she continues to present symptoms of severe withdrawal requiring admission to ICU with a CIWA protocol and Precedex drip. 06/13: Afebrile. Received multi antipsychotics and sedatives overnight. Dexmedetomidine drip ordered. Roth act. Subjective 06/14: Weaning off successfully drip. More awake alert. Will consult psychiatry under Roth act. Requesting diet. 06/15: Remains on Precedex at 0.6 mcg/kg/h. Also received Ativan and morphine overnight currently drowsy but wakes up. Complains of lower abdominal pain also states that she has history of Crohn's disease was not seen GI specialist due to insurance issues Objective Vital Signs / I&O: Vital Signs 06/14/18 08:00 06/14/18 09:00 06/14/18 10:00 Temperature 98.3 F Pulse Rate 59 L 57 L 66 Respiratory Rate 21 20 31 H Blood Pressure 137/92 H 133/82 128/77 Pulse Oximetry 98 94 L 95 06/14/18 11:00 06/14/18 12:00 06/14/18 13:00 Temperature 98.1 F 98.4 F Pulse Rate 65 82 75 Respiratory Rate 27 H 47 H 26 H Blood Pressure 124/72 128/90 118/62 Pulse Oximetry 95 98 99 06/14/18 14:00 06/14/18 16:00 06/14/18 16:14 Temperature Pulse Rate 89 70 Respiratory Rate 25 H 25 H 28 H Blood Pressure 129/75 130/82 Pulse Oximetry 98 98 06/14/18 17:00 06/14/18 17:46 06/14/18 18:00 Temperature 98.5 F 98.4 F Pulse Rate 62 58 L Respiratory Rate 24 22 25 H Blood Pressure 128/78 129/86 Pulse Oximetry 98 98 06/14/18 18:43 06/14/18 19:00 06/14/18 20:00 Temperature 97.6 F Pulse Rate 75 57 L Respiratory Rate 22 25 H 27 H Blood Pressure 115/69 127/85 Pulse Oximetry 98 95 06/14/18 20:25 06/14/18 21:00 06/14/18 22:00 Temperature Pulse Rate 43 L 56 L Respiratory Rate 21 19 Blood Pressure 146/92 H 148/99 H Pulse Oximetry 94 L 92 L 94 L 06/14/18 23:00 06/14/18 23:03 06/15/18 00:00 Temperature 97.9 F Pulse Rate 50 L 54 L 40 L Respiratory Rate 23 22 18 Blood Pressure 156/101 H 127/90 Pulse Oximetry 96 94 L 97 06/15/18 00:01 06/15/18 00:30 06/15/18 01:00 Temperature Pulse Rate 44 L 45 L 38 L Respiratory Rate 19 26 H 21 Blood Pressure 155/97 H 133/81 Pulse Oximetry 98 95 100 06/15/18 01:12 06/15/18 01:30 06/15/18 01:33 Temperature Pulse Rate 43 L 49 L 49 L Respiratory Rate 21 17 19 Blood Pressure 140/98 H 138/104 H 138/104 H Pulse Oximetry 100 100 100 06/15/18 02:00 06/15/18 02:30 06/15/18 03:00 Temperature Pulse Rate 45 L 49 L 50 L Respiratory Rate 16 20 21 Blood Pressure 136/98 H 137/98 H 121/88 Pulse Oximetry 100 96 97 06/15/18 03:30 06/15/18 04:00 06/15/18 04:31 Temperature 97.6 F Pulse Rate 47 L 50 L 46 L Respiratory Rate 20 20 20 Blood Pressure 132/91 H 143/94 H 138/89 Pulse Oximetry 100 82 L 06/15/18 05:00 06/15/18 05:31 06/15/18 06:00 Temperature Pulse Rate 56 L 53 L 45 L Respiratory Rate 20 24 21 Blood Pressure 133/93 H 116/75 Pulse Oximetry 98 78 L 78 L 06/15/18 06:01 06/15/18 06:30 06/15/18 07:00 Temperature Pulse Rate 50 L 49 L 54 L Respiratory Rate 21 20 22 Blood Pressure 141/93 H 140/91 H 144/93 H Pulse Oximetry 79 L 82 L 86 L 06/15/18 07:30 06/15/18 07:34 Temperature Pulse Rate 48 L Respiratory Rate 23 Blood Pressure 128/84 Pulse Oximetry 96 99 Intake & Output 06/14/18 06/15/18 06/15/18 18:59 06:59 18:59 Intake Total 2951.2 / 2951.2 1730 / 1730 Output Total 2049 / 2049 600 / 600 Balance 901.2 / 901.2 1130 / 1130 Weight 69.2 kg Intake: IV 1511.2 / 1511.2 1250 / 1250 Precedex Inj 1,000 MCG In NS 250 / 250 Inj 240 ML @ 0.2 MCG/KG/HR 2.77 mls/hr IV.CONT TITRATE PRN Rx# :[id number] NS Inj 1,000 ML @ 100 mls/hr IV 1000 / 1000 .CONT .Q10H [facility] Rx#:[id number] MVI-12 Inj 10 ML Thiamine Inj 511.2 / 511.2 100 MG Folvite Inj 1 MG In NS Inj 500 ML @ 125 mls/hr IV.SIG Q24H [facility] Rx#:[id number] NS Inj 1,000 ML @ Wide Open IV. 1000 / 1000 SIG BOLUS [facility] Rx#:[id number] Oral 1440 / 1440 480 / 480 Output: Urine 2049 0 / 0 Urine Amount (Catheter) 600 / 600 Straight 600 / 600 Other: # Voids 5 0 # Incontinent Voids 1 0 Date of Last Bowel Movement 06/14/18 06/14/18 # Bowel Movements 1 0 Result Diagrams: 06/15/18 06:32 06/15/18 06:32 Objective Remarks: GENERAL: 27-year-old female currently resting in bed in no acute distress SKIN: Warm and dry. Garcia HEAD: Atraumatic. Normocephalic. EYES: Pupils equal and round. No scleral icterus. No injection or drainage. ENT: No nasal bleeding or discharge. Mucous membranes pink and moist. NECK: Trachea midline. No JVD. CARDIOVASCULAR: Regular rate and rhythm. S1, S2. No S4. RESPIRATORY: No accessory muscle use. Clear to auscultation. Breath sounds equal bilaterally. GASTROINTESTINAL: Abdomen soft, nondistended. RLQ abdominal tenderness. Hepatic and splenic margins not palpable. MUSCULOSKELETAL: Extremities without clubbing, cyanosis, or edema. No obvious deformities. NEUROLOGICAL: Awake and alert. No obvious cranial nerve deficits. Motor grossly within normal limits. Five out of 5 muscle strength in the arms and legs. Slurred speech. Assessment and Plan - Assessment and Plan Plan: Neuro/Psych: Acute delirium likely secondary to polysubstance withdrawal Depressive disorder NOS Anxiety disorder NOS Urine toxicology screen positive for THC, cocaine and opiate Holding home medications of quetiapine, lamotrigine and bupropion. Receiving as needed lorazepam, haloperidol and currently on dexmedetomidine drip if indicated Received multiple doses of clonidine, diphenhydramine and lorazepam in the ED along with IM olanzapine Start clonidine 0.2 mg p.o. every 8 hours and attempt to wean Precedex unsuccessful yesterday, currently on 0.6 mcg/kg/h Roth act. Consult psychiatry Placed on vitamin bag daily [address] brain shows no acute intracranial findings CV: Currently on normal saline at 100 cc an hour Not requiring vasopressors and/or antihypertensives Resp: Nasal cannula is indicated to maintain saturations greater than or equal to 92% Incentive spirometry while awake GI: History of Crohn's disease Advance diet as tolerated Famotidine for GI prophylaxis Docusate sodium senna 1 tablet twice daily for bowel regimen There is no evidence of exacerbation of Crohn's disease at this time other than mild abdominal pain, further workup and treatment can be done as outpatient : No indication for Cullen catheter Endo: Sliding scale insulin with Accu-Cheks to maintain euglycemia/aspart insulin low regimen every 6 hours TSH was 2.15 Renal: Creatinine within normal limits Monitor urine output Accurate I's and O's Heme: CBC within normal limits. ID: Monitor for signs and symptomatology infection UA negative Blood cultures 2 negative to date MSK: PT evaluate and treat FEN: Replace electrolytes as clinically indicated per ICU electrolyte protocol Currently on normal saline at 100 cc an hour Access -Utilize peripheral IV. Central line if indicated Prophylaxis -GI -famotidine -DVT-SCDs plus/placed on enoxaparin by overnight divine healer. Level 2 follow-up Continue ICU care due to Precedex requirement
--- NOTE | 2018-06-15 08:41 | P.DIET ---
Nutritional Evaluation Type of nutrition evaluation: initial Nutrition screening: [facility] [place] comments: Malnutrition Subjective Subjective Comments: Pt reports of an allergic reaction to medication Objective - Diagnosis opiate/benzo withdrawal - Objective Taft body weight: 61 kg % IBW: 90 Body Weight Used for Calculations: Actual (55.4kg) Energy Needs - Lower Range (kCal/kg): 33 Energy Needs - Upper Range (kCal/kg): 38 Lower Limit kCal/kg (kCals): 1,828 Upper Limit kCal/kg (kCals): 2,105 Lower Limit Protein Factor (Grams per Kg): 1.2 Upper Limit Protein Factor (Grams per Kg): 1.5 Lower Protein Needs (Protein): 66 Upper Protein Needs (Protein): 83 Fluid Factor (ml/kg): 35 Estimated Fluid Needs (ml): 1,939 Dietitian Reviewed in Medical Record: Current diet, Curent medications, Intake & Output, Labs, Medical history Diet Order: Regular Oral Diet Intake Amount: Excellent 90%+ Objective Comments: PMH: Anxiety, Depression, PTSD, polysubstance abuse Meds include: Multivitamin/thiamine/folic acid IV Last BM 06/14 Assessment Assessment: Pt at nutritional risk r/t current clinical status. Pt admitted voluntary Roth Act to detox. Nutritional needs as assessed above. Pt had been NPO, now on a regular diet and eating 100% of her meals. Pt is at 90% of her ideal body weight. Will provide Enlive tid for additional nutrition, each bottle provides 350 kcals and 20 gms protein. Agree with multivitamin/thiamine/folic acid supplementation. Will monitor po intake, clinical course. Recommendations: Regular diet with Enlive tid Dietitian to Monitor: Lab values, Supplement acceptance, Intake & Output, Diet tolerance, Weight change, PO Intake, Medical course
[2018-06-15] MEDS: Multivitamin Inj 10 ML, Thiamine Inj 100 MG, Folic Acid Inj 1 MG in Sodium Chlor 0.9% I... IV.SIG SCH (09:24)
[2018-06-15] MEDS: buPROPion 150 MG 12 HR Tablet PO SCH (09:24)
[2018-06-15] MEDS: Famotidine PF Inj 20 MG/2 ML Vial IV.PUSH SCH (09:24)
[2018-06-15] MEDS: Senna/Docusate Sodium 8.6/50 MG Tablet PO SCH (09:25)
[2018-06-15] MEDS: Sod Chloride 0.9% Inj 1,000 ML IV.CONT SCH ×2 (11:03→13:51)
--- NOTE | 2018-06-15 13:39 | P.CONPSY ---
Provisional Diagnosis Admission Date: June 13, 2018 04:59 History of Present Illness Service: psychiatry Consult date: 06/15/18 Primary Care Provider: UNKNOWN Chief Complaint: see below History of Present Illness: Patient is a 27-year-old female with a history of mood disorder and polysubstance abuse. Patient was consulted by the psychiatry service for medication recommendation and possible transfer to psychiatry. Patient is admitted to the medical floor under Roth act for suicidal ideation. Patient is actively withdrawing from opiates and Xanax and is on the CIWA scale at this time. Patient had an episode this morning where she tried to elope the unit and had to be restrained by security. During the interview patient is tearful, anxious and irritable. She minimizes her drug use and suicidal ideation and wants to leave to see her 9-year-old daughter at home. Patient admits to being on Suboxone her family health provider while being a patient at [facility]. She admits to using Xanax while using Suboxone and heroin. Today, she does deny suicidal or homicidal ideation intent or plan. pshx: Patient was recently started on Seroquel and Wellbutrin and possibly another agent. She says she has a history of bipolar disorder PTSD depression and anxiety. Patient caught as a teenager with her last cut 14 years ago. Patient denies any other inpatient admissions since then. Medical history includes Crohn's disease. social: Patient admits to a history of benzodiazepine abuse most recently using Xanax bars 3-4 times a day. Denies a history of rehab. She is engaged and has 9-year-old daughter [facility] - History History Provided By: Patient - Medical / Surgical Hx Neg / Unobtainable Medical Problems Denied: Unable to Obtain - Medical History Medical History: Medical History (Last Reviewed 06/15/18 @ 08:17 by Yury Howell) Patient denies medical problems (Acute) Anxiety Depression PTSD (post-traumatic stress disorder) - Surgical History Surgical History: Surgical History (Last Reviewed 06/15/18 @ 08:17 by Yury Howell) No history of previous surgery (Acute) - Tobacco History Tobacco Use In Past 30 Days: Yes Smoking Status: Current every day smoker Tobacco Type: Cigarettes - Alcohol History How Often Do You Have a Drink Containing Alcohol: Never - Substance Use History Substance History: Active Abuse - Substance Use Type Heroin Status: Active Route Used: Inhalation, Intravenously Last Used: TODAY Reason for Use: Get High - Travel History Recent Travel in the [place] Within the Last 8 Weeks: No Recent Travel Out of the Country Within the Last 8 Weeks: No - Immunization History Tetanus Immunization: <5 Years Hx Influenza Vaccine This Season: No Medications and Allergies Active Medications: Active Medications Acetaminophen (Tylenol) 650 mg PO Q6H PRN PRN Reason: PAIN 1-10 AND/OR FEVER >101F Al Hydroxide/Mg Hydroxide (Milk Of Santiago Liangie) 30 ml PO Q12H PRN PRN Reason: Mild Constipation Albuterol (Albuterol Neb (Prn)) 2.5 mg NEB Q2HR NEB PRN PRN Reason: DYSPNEA Albuterol (Duoneb Neb (Krystian)) 1 ampul NEB Q6HR NEB [facility] Last Admin: 06/15/18 04:01 Dose: Not Given Bisacodyl (Dulcolax Supp) 10 mg RECTAL DAILY PRN PRN Reason: SEVERE CONSITIPATION Bupropion HCl (Wellbutrin Sr) 150 mg PO DAILY [facility] Last Admin: 06/15/18 09:24 Dose: 150 mg Chlorhexidine Gluconate (Chlorhexidine 2% Cloth) 3 pack TOPICAL DAILY@0400 [facility] Stop: 06/19/18 03:59 Last Admin: 06/15/18 06:34 Dose: Not Given Chlorhexidine Gluconate (Chlorhexidine 2% Cloth) 3 pack TOPICAL DAILY@0400 PRN PRN Reason: Extra cloth needed Stop: 06/19/18 03:59 Clonidine HCl (Catapres) 0.1 mg PO Q6H [facility] Last Admin: 06/15/18 09:24 Dose: 0.1 mg Dextrose (D50w Vial) 50 ml IV.PUSH UNSCH PRN PRN Reason: PER HYPOGLYCEMIA PROTOCOL Enoxaparin Sodium (Lovenox Inj) 40 mg SQ Q24H [facility] Last Admin: 06/15/18 06:34 Dose: 40 mg Famotidine (Pepcid Pf Inj) 20 mg IV.PUSH Q12HR [facility] Last Admin: 06/15/18 09:24 Dose: 20 mg Flumazenil (Romazecon Inj) 0.2 mg IV.PUSH Q1M PRN PRN Reason: OVERSEDATION Glucagon (Glucagon Inj) 1 mg OTHER PRN PRN PRN Reason: for Hypoglycemia Protocol Haloperidol Lactate (Haldol Inj) 1 mg IV.PUSH Q15M PRN PRN Reason: for severe agitation Sodium Chloride (Ns Inj) 1,000 mls @ 0 mls/hr IV.SIG BOLUS [facility] Last Admin: 06/14/18 22:17 Dose: 100 mls/hr Sodium Chloride (Ns Inj) 1,000 mls @ 0 mls/hr IV.SIG BOLUS [facility] Last Infusion: 06/13/18 01:34 Dose: Infused Sodium Chloride (Ns Inj) 1,000 mls @ 100 mls/hr IV.CONT .Q10H [facility] Last Admin: 06/15/18 11:03 Dose: Not Given Dexmedetomidine HCl 1,000 mcg/ (Sodium Chloride) 250 mls @ 2.77 mls/hr IV.CONT TITRATE PRN; Protocol PRN Reason: PER PROTOCOL Last Infusion: 06/15/18 09:30 Dose: 0 mcg/kg/hr, 0 mls/hr Magnesium Sulfate Inj 4 gm/ (Sodium Chloride) 100 mls @ 50 mls/hr IV.SIG UNSCH PRN PRN Reason: For Magnesium 0.9 - 1.1 mg/dL Magnesium Sulfate Inj 2 gm/ (Sodium Chloride) 100 mls @ 50 mls/hr IV.SIG UNSCH PRN PRN Reason: For Magnesium 1.2 - 1.6 mg/dL Potassium Chloride (Kcl 40 Meq Premix Inj) 40 meq in 100 mls @ 25 mls/hr IV.SIG Q2H PRN PRN Reason: For Potassium 2.8 - 3.2 mEq/L Potassium Chloride (Kcl 40 Meq Premix Inj) 40 meq in 100 mls @ 25 mls/hr IV.SIG UNSCH PRN PRN Reason: For Potassium 3.3 - 3.5 mEq/L Potassium Chloride (Kcl 20 Meq Premix Inj) 20 meq in 100 mls @ 50 mls/hr IV.SIG Q2H PRN PRN Reason: For Potassium 2.8 - 3.2 mEq/L Potassium Phosphate 30 mmol/ (Sodium Chloride) 260 mls @ 42 mls/hr IV.SIG UNSCH PRN PRN Reason: SEE LABEL COMMENTS Sodium Phosphate 30 mmol/ (Sodium Chloride) 260 mls @ 42 mls/hr IV.SIG UNSCH PRN PRN Reason: For Phosphorus < 2.5 mg/dL Potassium Chloride (Kcl 20 Meq Premix Inj) 20 meq in 100 mls @ 50 mls/hr IV.SIG Q2H PRN PRN Reason: For Potassium 3.3 - 3.5 mEq/L Insulin Aspart (Novolog Insulin Correctional Sugar Inj) 0 unit SQ Q6HR [facility]; Protocol Last Admin: 06/15/18 06:35 Dose: Not Given Lactulose (Lactulose Liq) 30 ml PO DAILY PRN PRN Reason: SEVERE CONSITIPATION Lorazepam (Ativan) 1 mg PO Q4H PRN PRN Reason: for CIWA 8-10 Last Admin: 06/14/18 14:28 Dose: 1 mg Lorazepam (Ativan) 2 mg PO Q2H PRN PRN Reason: for CIWA 11-14 Last Admin: 06/15/18 10:06 Dose: 2 mg Lorazepam (Ativan Inj) 2 mg IV.PUSH Q2H PRN PRN Reason: for CIWA 11-14 Last Admin: 06/15/18 11:15 Dose: 2 mg Lorazepam (Ativan Inj) 2 mg IV.PUSH Q1H PRN PRN Reason: for CIWA 15-20 Last Admin: 06/15/18 12:00 Dose: 2 mg Lorazepam (Ativan Inj) 2 mg IV.PUSH Q15M PRN PRN Reason: for CIWA > 20 Lorazepam (Ativan Inj) 1 mg IV.PUSH Q4H PRN PRN Reason: for CIWA 8-10 Magnesium Oxide (Mag-Ox) 800 mg PO UNSCH PRN PRN Reason: For Magnesium 1.2 - 1.6 mg/dL Metoclopramide HCl (Reglan Inj) 5 mg IV.PUSH Q6HR [facility]; Protocol Last Admin: 06/15/18 11:15 Dose: 5 mg Morphine Sulfate (Morphine Inj) 2 mg IV.PUSH Q2H PRN PRN Reason: PAIN SCALE 6 TO 10 Last Admin: 06/15/18 11:59 Dose: 2 mg Ondansetron HCl (Zofran Inj) 4 mg IV.PUSH Q6H PRN PRN Reason: NAUSEA OR VOMITING Last Admin: 06/14/18 17:10 Dose: 4 mg Potassium Bicarb/Potassium Chloride (K-Lyte Cl Eff) 50 meq PO UNSCH PRN PRN Reason: For Potassium 3.3 - 3.5 mEq/L Potassium Phosphate (K-Phos Original) 2,000 mg PO Q4H PRN PRN Reason: Phosphorus Less Than 2.5 mg/dL Potassium Phosphate (K-Phos Original) 2,000 mg PO UNSCH PRN PRN Reason: SEE LABEL COMMENTS Senna/Docusate Sodium (Jocelin-Colace) 1 tab PO BID [facility] Last Admin: 06/15/18 09:25 Dose: Not Given Sennosides (Senokot) 17.2 mg PO Q12H PRN PRN Reason: Moderate Constipation Sodium Chloride (Ns Flush) 2 ml IV.FLUSH BID [facility] Last Admin: 06/15/18 09:25 Dose: 2 ml Sodium Chloride (Ns Flush) 2 ml IV.FLUSH PRN PRN PRN Reason: FLUSH AFTER USING IV ACCESS Allergies Allergy/AdvReac Type Severity Reaction Status Date / Time *MDRO Multi-Drug Resistant AdvReac Unknown Uncoded 08/16/17 19:12 Organism Home Medications Medication Instructions Recorded Confirmed Type bupropion HCl [Wellbutrin SR] 150 mg PO DAILY 05/08/18 06/13/18 History Exam Vital signs: Vital Signs 06/14/18 14:00 06/14/18 16:00 06/14/18 16:14 Temperature Pulse Rate 89 70 Respiratory Rate 25 H 25 H 28 H Blood Pressure 129/75 130/82 Pulse Oximetry 98 98 06/14/18 17:00 06/14/18 17:46 06/14/18 18:00 Temperature 98.5 F 98.4 F Pulse Rate 62 58 L Respiratory Rate 24 22 25 H Blood Pressure 128/78 129/86 Pulse Oximetry 98 98 06/14/18 18:43 06/14/18 19:00 06/14/18 20:00 Temperature 97.6 F Pulse Rate 75 57 L Respiratory Rate 22 25 H 27 H Blood Pressure 115/69 127/85 Pulse Oximetry 98 95 06/14/18 20:25 06/14/18 21:00 06/14/18 22:00 Temperature Pulse Rate 43 L 56 L Respiratory Rate 21 19 Blood Pressure 146/92 H 148/99 H Pulse Oximetry 94 L 92 L 94 L 06/14/18 23:00 06/14/18 23:03 06/15/18 00:00 Temperature 97.9 F Pulse Rate 50 L 54 L 40 L Respiratory Rate 23 22 18 Blood Pressure 156/101 H 127/90 Pulse Oximetry 96 94 L 97 06/15/18 00:01 06/15/18 00:30 06/15/18 01:00 Temperature Pulse Rate 44 L 45 L 38 L Respiratory Rate 19 26 H 21 Blood Pressure 155/97 H 133/81 Pulse Oximetry 98 95 100 06/15/18 01:12 06/15/18 01:30 06/15/18 01:33 Temperature Pulse Rate 43 L 49 L 49 L Respiratory Rate 21 17 19 Blood Pressure 140/98 H 138/104 H 138/104 H Pulse Oximetry 100 100 100 06/15/18 02:00 06/15/18 02:30 06/15/18 03:00 Temperature Pulse Rate 45 L 49 L 50 L Respiratory Rate 16 20 21 Blood Pressure 136/98 H 137/98 H 121/88 Pulse Oximetry 100 96 97 06/15/18 03:30 06/15/18 04:00 06/15/18 04:31 Temperature 97.6 F Pulse Rate 47 L 50 L 46 L Respiratory Rate 20 20 20 Blood Pressure 132/91 H 143/94 H 138/89 Pulse Oximetry 100 82 L 06/15/18 05:00 06/15/18 05:31 06/15/18 06:00 Temperature Pulse Rate 56 L 53 L 45 L Respiratory Rate 20 24 21 Blood Pressure 133/93 H 116/75 Pulse Oximetry 98 78 L 78 L 06/15/18 06:01 06/15/18 06:30 06/15/18 07:00 Temperature Pulse Rate 50 L 49 L 54 L Respiratory Rate 21 20 22 Blood Pressure 141/93 H 140/91 H 144/93 H Pulse Oximetry 79 L 82 L 86 L 06/15/18 07:30 06/15/18 07:34 06/15/18 08:00 Temperature 98.5 F Pulse Rate 48 L 51 L Respiratory Rate 23 21 Blood Pressure 128/84 138/95 H Pulse Oximetry 96 99 97 06/15/18 09:00 06/15/18 10:00 06/15/18 10:58 Temperature Pulse Rate 62 92 H Respiratory Rate 28 H 32 H 28 H Blood Pressure 120/80 124/87 Pulse Oximetry 99 99 06/15/18 11:00 06/15/18 12:00 06/15/18 12:01 Temperature 98.1 F Pulse Rate 72 66 Respiratory Rate 18 26 H 22 Blood Pressure 129/89 139/94 H Pulse Oximetry 99 100 06/15/18 12:10 Temperature Pulse Rate Respiratory Rate 20 Blood Pressure Pulse Oximetry Intake & Output 06/14/18 06/15/18 06/15/18 18:59 06:59 18:59 Intake Total 2951.2 / 2951.2 1730 / 1730 1000 / 1000 Output Total 2049 600 / 600 Balance 901.2 / 901.2 1130 / 1130 1000 / 1000 Weight 69.2 kg Intake: IV 1511.2 / 1511.2 1250 / 1250 1000 / 1000 Precedex Inj 1,000 MCG In NS 250 / 250 Inj 240 ML @ 0.2 MCG/KG/HR 2.77 mls/hr IV.CONT TITRATE PRN Rx# :[id number] NS Inj 1,000 ML @ 100 mls/hr IV 1000 / 1000 1000 / 1000 .CONT .Q10H [facility] Rx#:[id number] MVI-12 Inj 10 ML Thiamine Inj 511.2 / 511.2 100 MG Folvite Inj 1 MG In NS Inj 500 ML @ 125 mls/hr IV.SIG Q24H [facility] Rx#:[id number] NS Inj 1,000 ML @ Wide Open IV. 1000 / 1000 SIG BOLUS [facility]ST[facility] Rx#:[id number] Oral 1440 / 1440 480 / 480 Output: Urine 2049 0 / 0 Urine Amount (Catheter) 600 / 600 Straight 600 / 600 Other: # Voids 5 0 # Incontinent Voids 1 0 Date of Last Bowel Movement 06/14/18 06/14/18 06/14/18 # Bowel Movements 1 0 Mental Status Examination Appearance: Disheveled Consciousness: Alert Orientation: x4 Motor Activity: Normal gait Speech: Pressured, Rapid Language: Adequate Fund of Knowledge: Adequate Attention and Concentration: Easily distracted Memory: Unremarkable Mood: Angry, Sad Affect: Anxious Thought Process & Associations: Intact Thought Content: Appropriate Delusion Type: None Suicidal Ideation: No Suicidal Plan: No Suicidal Intention: No Homicidal Ideation: No Homicidal Plan: No Homicidal Intention: No Insight: Poor Judgment: Poor Assessment and Plan - Assessment (1) Unspecified mood [affective] disorder Code(s): F39 - Unspecified mood [affective] disorder Status: Acute (2) Opioid use disorder, severe, in controlled environment Code(s): F11.20 - Opioid dependence, uncomplicated Status: Acute - Plan Plan: Estimated LOS: [] days I spoke with Dr. Castle from the medical team who is requesting a transfer to the medical surgical psychiatry unit. I recommended that once she is medically cleared she would be appropriate for that unit given she is still going through mild opiate withdrawals. She appears to be on morphine and I recommended no opiates during her withdrawal. Can continue with clonidine and symptomatic treatment for withdrawal. She can continue on the CIWA scale with Ativan. After she is on the psych unit and her withdrawal have improved we can discuss her mood disorder and suggests an appropriate medication. I recommend holding the Wellbutrin to prevent possible seizure Justification for Continued Inpatient Stay: Patient would decompensate in a less restrictive setting
[2018-06-15] MEDS: Dexmedetomidine Inj 1,000 MCG in Sodium Chlor 0.9% Inj 240 ML IV.CONT PRN (20:07)
--- NOTE | 2018-06-16 07:57 | P.DS ---
Date of admission: 06/13/18 04:59 Primary care physician: UNKNOWN Attending physician on discharge: Kitty Whipple Anticipated date of discharge: 06/15/18 Brief History from admission: 27-year-old female with history of polysubstance abuse, opiate dependency, bipolar disorder, presents after she was started on new medications 2 weeks ago. They include Seroquel, lamotrigine, Wellbutrin. Patient initially said that about 7 days after taking them, she began to feel high and having hallucinations. She feels like she is tripping on acid when she is not doing acid. Patient has also been unable to sleep. She denied any chest pain or tightness. No difficulty breathing. She has had no fever chills. Patient also uses IV opiates, cocaine, smokes marijuana. Her mother is requesting help with detox. Patient also said that she wants help. At around 0335 the patient patient started yelling incomprehensible words within the room. She became diaphoretic, tachycardic but otherwise her vital signs remain stable. She was given 1 more milligram of Ativan. After several attempts to stabilize this patient and assist her through her symptoms, when she has received a total of 13 mg of IV Ativan, 0.1 mg clonidine, 50 mg of Benadryl, and 10 mg of Zyprexa she continues to present symptoms of severe withdrawal requiring admission to ICU with a CIWA protocol and Precedex drip. Patient update on day of discharge: Patient had been seen by psychiatrist and been accepted to med psych. Patient is getting weaned off Precedex. Psychiatry recommends sending her to med psych on no medication except clonidine DS: Diagnosis - Discharge Diagnosis (1) Breast lump in lower inner quadrant Status: Chronic (2) Opiate withdrawal Status: Acute (3) Benzodiazepine abuse Status: Acute (4) Adjustment reaction with mixed disturbance of emotions and conduct Status: Acute (5) Hallucination, drug-induced Status: Acute (6) Opiate dependence Status: Acute (7) Family history of breast cancer in mother Status: Chronic DS: Summary Hospital Course: 27-year-old female with history of polysubstance abuse, opiate dependency, bipolar disorder, presents after she was started on new medications 2 weeks ago. They include Seroquel, lamotrigine, Wellbutrin. Patient initially said that about 7 days after taking them, she began to feel high and having hallucinations. She feels like she is tripping on acid when she is not doing acid. Patient has also been unable to sleep. She denied any chest pain or tightness. No difficulty breathing. She has had no fever chills. Patient also uses IV opiates, cocaine, smokes marijuana. Her mother is requesting help with detox. Patient also said that she wants help. At around 0335 the patient patient started yelling incomprehensible words within the room. She became diaphoretic, tachycardic but otherwise her vital signs remain stable. She was given 1 more milligram of Ativan. After several attempts to stabilize this patient and assist her through her symptoms, when she has received a total of 13 mg of IV Ativan, 0.1 mg clonidine, 50 mg of Benadryl, and 10 mg of Zyprexa she continues to present symptoms of severe withdrawal requiring admission to ICU with a CIWA protocol and Precedex drip. 06/13: Afebrile. Received multi antipsychotics and sedatives overnight. Dexmedetomidine drip ordered. Roth act. 06/14: Weaning off successfully drip. More awake alert. Will consult psychiatry under Roth act. Requesting diet. 06/15: Remains on Precedex at 0.6 mcg/kg/h. Also received Ativan and morphine overnight currently drowsy but wakes up. Complains of lower abdominal pain also states that she has history of Crohn's disease was not seen GI specialist due to insurance issues. Later part of the day patient tried to elope from the unit and was brought back by the security. She told me that she tried to run away because she was from not allowed to call her mother. Patient was from that after kept off Precedex as she calmed down significantly. She was treated with as needed IV Ativan and morphine Patient stated to me that she has a lump in her right breast and has significant family history of breast cancer- her mother had breast cancer and multiple relatives on father's side had breast cancer. She requested that I examine her for breast lump. Myself and MARRY Rhodes examined the patient. She appears to have a right inner quadrant breast lump versus fibrous tissue. I explained to her that all the workup has to be done as outpatient except I will get a ultrasound of the right breast. She understands that she is to make outpatient appointment and follow-up with primary care for mammogram and further workup due to her significant family history of breast cancer. I was informed by [employer] that in hospital US i only for breast abscess. Will cancel the ultrasound and again patient understands the risk of cancer and she will make outpatient appointment once she is discharged from psych admission Psychiatrist came to see the patient, accepted for transfer to [facility] - Time Spent with Patient Total time spent providing and/or coordinating discharge services: Greater than 30 minutes - Quality: VTE Deep Vein Thrombosis/Pulmonary Embolism Present on Admission: No Exam Vital signs: Vital Signs 06/15/18 08:00 06/15/18 09:00 06/15/18 10:00 Temperature 98.5 F Pulse Rate 51 L 62 92 H Respiratory Rate 21 28 H 32 H Blood Pressure 138/95 H 120/80 124/87 Pulse Oximetry 97 99 99 06/15/18 10:58 06/15/18 11:00 06/15/18 12:00 Temperature 98.1 F Pulse Rate 72 66 Respiratory Rate 28 H 18 26 H Blood Pressure 129/89 139/94 H Pulse Oximetry 99 100 06/15/18 12:01 06/15/18 12:10 06/15/18 13:00 Temperature 98.1 F Pulse Rate 79 Respiratory Rate 22 20 24 Blood Pressure 138/90 Pulse Oximetry 99 06/15/18 14:00 06/15/18 14:01 06/15/18 14:11 Temperature Pulse Rate 86 87 Respiratory Rate 41 H 31 H 24 Blood Pressure 126/94 H 126/94 H Pulse Oximetry 89 L 06/15/18 15:00 06/15/18 15:51 06/15/18 16:00 Temperature 98.5 F Pulse Rate 77 89 Respiratory Rate 7 L 20 39 H Blood Pressure 102/64 145/74 H Pulse Oximetry 89 L 99 06/15/18 17:00 06/15/18 18:00 06/15/18 18:05 Temperature Pulse Rate 67 87 Respiratory Rate 17 24 22 Blood Pressure 140/95 H 131/90 Pulse Oximetry 98 98 06/15/18 18:30 06/15/18 19:04 06/15/18 19:09 Temperature Pulse Rate 96 H 98 H 103 H Respiratory Rate 27 H 33 H 20 Blood Pressure 139/86 134/86 Pulse Oximetry 06/15/18 19:42 06/15/18 20:00 Temperature 98.4 F Pulse Rate 93 H 113 H Respiratory Rate 30 H 43 H Blood Pressure 139/92 H Pulse Oximetry Intake & Output 06/15/18 06/16/18 06/16/18 18:59 06:59 18:59 Intake Total 3026.2 / 3026.2 250 / 250 Output Total 1850 / 1850 Balance 1176.2 / 1176.2 250 / 250 Intake: IV 1511.2 / 1511.2 250 / 250 Precedex Inj 1,000 MCG In NS 250 / 250 Inj 240 ML @ 0.2 MCG/KG/HR 2.77 mls/hr IV.CONT TITRATE PRN Rx# :[id number] NS Inj 1,000 ML @ 100 mls/hr IV 1000 / 1000 .CONT .Q10H LESLIE Rx#:[id number] MVI-12 Inj 10 ML Thiamine Inj 511.2 / 511.2 100 MG Folvite Inj 1 MG In NS Inj 500 ML @ 125 mls/hr IV.SIG Q24H LESLIE Rx#:[id number] Oral 1275 / 1275 Oral Supplement 240 / 240 Output: Urine 1850 / 1850 Other: Date of Last Bowel Movement 06/14/18 06/14/18 Narrative: GENERAL: 27-year-old female currently resting in bed in no acute distress SKIN: Warm and dry. Garcia HEAD: Atraumatic. Normocephalic. EYES: Pupils equal and round. No scleral icterus. No injection or drainage. ENT: No nasal bleeding or discharge. Mucous membranes pink and moist. NECK: Trachea midline. No JVD. CARDIOVASCULAR: Regular rate and rhythm. S1, S2. No S4. BREAST EXAM (By myself and RN Meagan). Patient had a possible lump vs fibrous tissue on Right inner quadrant which was not mobile RESPIRATORY: No accessory muscle use. Clear to auscultation. Breath sounds equal bilaterally. GASTROINTESTINAL: Abdomen soft, nondistended. RLQ abdominal tenderness. Hepatic and splenic margins not palpable. MUSCULOSKELETAL: Extremities without clubbing, cyanosis, or edema. No obvious deformities. NEUROLOGICAL: Awake and alert. No obvious cranial nerve deficits. Motor grossly within normal limits. Five out of 5 muscle strength in the arms and legs. Tremulous Results Procedures completed during hospitalization: No invasive procedures Labs on day of discharge: Labs from last 24 hours 06/15/18 06/15/18 18:04 11:26 POC Glucose 139 H 90 Preliminary micro results at discharge 06/13/18 08:50 Aerobic Blood Culture - Preliminary Blood - Peripheral No growth in 2 days Anaerobic Blood Culture - Preliminary No growth in 2 days 06/13/18 08:55 Aerobic Blood Culture - Preliminary Blood - Peripheral No growth in 2 days Anaerobic Blood Culture - Preliminary No growth in 2 days - Impressions ITS Impressions Head CT 06/13/18 00:00 CONCLUSION: 1. Negative CT Head non contrast. 2. No evidence of acute infarct, hemorrhage, mass or edema. . Discharge Plan - Discharge Disposition Patient Disposition: 63 Disc To [facility] Facility - Discharge Condition Condition: Stable - Discharge Order Discharge Orders: Discharge Order (Routine); Ordered 06/15/18 Ordered By: Kitty Whipple - Discharge Details Anticipated Discharge Date: 06/15/18 Discharge Comment: Discharge to [facility] when bed available - Physicians Team Primary Care Provider: UNKNOWN, Attending Provider: Marcel Morales Other Providers: Trell Suero DO ; Estelle Hernandez MD
== END 2018-06-15 21:20 ==
LOC: NEPD 19:06 → NEDA 06-13 04:59 → HIMC 06-13 06:10
PROVIDERS: ADMIT Internal Medicine Critical Care Medicine; ATTEND Internal Medicine Critical Care Medicine

== ENCOUNTER 2018-06-15 21:34 | Inpatient (IN) ==
[2018-06-15] MEDS ORDERED: Acetaminophen 325 MG Tablet PO PRN (21:53)
[2018-06-15] MEDS ORDERED: Melatonin 5 MG Tablet PO PRN (21:53)
[2018-06-15] MEDS ORDERED: Aluminum/Magnesium/Simethacone Susp 30 ML UDC PO PRN (21:53)
[2018-06-15] MEDS ORDERED: Haloperidol Inj 5 MG/ML Ampul IV.PUSH PRN (21:55)
[2018-06-15] MEDS: LORazepam 1 MG Tablet PO PRN (22:50)
--- NOTE | 2018-06-16 07:33 | P.CONIM ---
History of Present Illness Service: Hospitalist Consult date: 06/16/18 Requesting Physician: Jose Figueroa Reason for Consult: Opiate withdrawal, medical management Primary Care Provider: UNKNOWN History of Present Illness: 27-year-old female with history of polysubstance abuse including IVDU and bipolar disorder originally admitted on 06/13 for acute withdrawal. UDS was positive for cocaine, opiates, and THC. She was admitted to critical care service and ultimately placed on a Precedex drip. She was weaned off the drip and was medically stable to be transferred to med/psych under Roth Act. She was given PO Ativan yesterday evening but hasn't required any since. She feels like she is no longer withdrawing. She denies tremors, palpitations, diaphoresis , anxiety, or hallucinations. She denies suicidal ideations. She reports she lives for her 9 year old daughter whom she wants to get back to as soon as possible. She is looking forward to starting on psychiatric medications to help with her mood disorder and substance abuse. She states she has been trying to get clean for some time but it has been difficult because she was trying to do it on her own. She started using drugs to cope with the of her son who was a full-term stillborn in 2011 and then began using IV in 2013. Other than skin infections and abscesses, she denies any other complications from IV use. Regarding her breast lump, she reports she has had it for several months. She is concerned because her mother was diagnosed with breast cancer in her 50s and also women in her father's side. She is aware that this needs to be followed as an outpatient. Review of Systems All other systems reviewed negative except as stated in HPI PMFSH - History History Provided By: Patient - Medical History Medical History: Medical History (Last Reviewed 06/16/18 @ 07:33 by Abbi Ho MD) Patient denies medical problems (Acute) Anxiety Depression PTSD (post-traumatic stress disorder) - Surgical History Surgical History: Surgical History (Last Reviewed 06/16/18 @ 07:33 by Abbi Ho MD) No history of previous surgery (Acute) - Family History Family History: Family History (Last Updated 06/16/18 @ 08:38 by Abbi Ho MD) Father Crohns disease Mother Breast cancer - Social History I have reviewed the patient's Social History: Yes - Tobacco History Second Hand Smoke Exposure: Yes Tobacco Use In Past 30 Days: Yes Smoking Status: Current every day smoker Tobacco Type: Cigarettes - Alcohol History How Often Do You Have a Drink Containing Alcohol: Never - Substance Use History Substance History: Active Abuse Medications and Allergies Active Medications: Active Medications Acetaminophen (Tylenol) 650 mg PO Q4H PRN PRN Reason: Pain 1-5 or Temp >101F Al Hydrox/Mg Hydrox/Simethicone (Mag-Al Plus Susp Liq) 30 ml PO Q6H PRN PRN Reason: DYSPEPSIA Al Hydroxide/Mg Hydroxide (Milk Of Magnesia Liq) 30 ml PO Q12H PRN PRN Reason: Mild Constipation Flumazenil (Romazecon Inj) 0.2 mg IV.PUSH Q1M PRN PRN Reason: OVERSEDATION Folic Acid (Folic Acid) 1 mg PO DAILY [facility] Stop: 06/21/18 08:59 Haloperidol Lactate (Haldol Inj) 1 mg IV.PUSH Q15M PRN PRN Reason: for severe agitation Lorazepam (Ativan) 1 mg PO Q4H PRN PRN Reason: for CIWA 8-10 Last Admin: 06/15/18 22:50 Dose: 1 mg Lorazepam (Ativan) 2 mg PO Q2H PRN PRN Reason: for CIWA 11-14 Lorazepam (Ativan Inj) 2 mg IV.PUSH Q2H PRN PRN Reason: for CIWA 11-14 Lorazepam (Ativan Inj) 2 mg IV.PUSH Q1H PRN PRN Reason: for CIWA 15-20 Lorazepam (Ativan Inj) 2 mg IV.PUSH Q15M PRN PRN Reason: for CIWA > 20 Lorazepam (Ativan Inj) 1 mg IV.PUSH Q4H PRN PRN Reason: for CIWA 8-10 Melatonin (Melatonin) 5 mg PO HS PRN PRN Reason: INSOMNIA Multivitamins/Minerals (Theragran-M) 1 tab PO DAILY [facility] Stop: 06/21/18 08:59 Thiamine HCl (Vitamin B1) 100 mg PO DAILY [facility] Allergies Allergy/AdvReac Type Severity Reaction Status Date / Time *MDRO Multi-Drug Resistant AdvReac Unknown Uncoded 08/16/17 19:12 [facility] Home Medications Medication Instructions Recorded Confirmed Type bupropion HCl [Wellbutrin SR] 150 mg PO DAILY 05/08/18 06/13/18 History Exam Vital signs: Vital Signs 06/15/18 22:00 06/16/18 06:00 Temperature 100.8 F H 97.5 F L Pulse Rate 81 67 Respiratory Rate 17 15 Blood Pressure 144/67 H 139/63 Pulse Oximetry 98 95 Intake & Output 06/15/18 06/16/18 06/16/18 18:59 06:59 18:59 Intake Total 240 / 240 Balance 240 / 240 Weight 66.8 kg Intake: Oral 240 / 240 Other: # Voids 1 Weight On Admission 66.8 kg Narrative: GENERAL: WN, WD cooperative female sitting up in bed eating breakfast in NAD. SKIN: Warm and dry. Not diaphoretic. HEENT: AT/NC. Pupils equal and round. MMM. HEART: RRR no m/r/g. LUNGS: CTAB without wheezes or crackles. ABDOMEN: +BS, soft, NT, ND. EXTREMITIES: No LE edema. 2+ pedal pulses. NEURO: Awake and alert. Nonfocal. Not tremulous. Assessment and Plan - Assessment (1) Substance abuse Code(s): F19.10 - Other psychoactive substance abuse, uncomplicated Status: Acute (2) Opiate withdrawal Code(s): F11.23 - Opioid dependence with withdrawal Status: Acute - Plan 27 year old female with history of mood disorder and polysubstance abuse admitted to med/psych for opiate withdrawal. Was admitted to ICU 06/13-06/15 and was on Precedex gtt. 1. Opiate withdrawal - Appears to be near resolved - Was given PO Ativan yesterday evening but hasn't required anything since - Subjectively patient does not feel like she is withdrawing - [facility] protocol 2. Mood disorder - [facility] 3. Polysubstance abuse - Admits to IV heroin, Xanax, Suboxone, and marijuana - Counseled on cessation and patient motivated to quit 4. Breast lump - Exam not performed as previously performed by Dr. Whipple and RN - Family history of breast cancer - Recommend outpatient f/u for ultrasound +/- mammogram - U/S not done in house for eval of breast lump, only for abscess r/o DVT prophylaxis: ambulatory Patient medically stable and can be discharged to psych from my perspective. 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
[2018-06-16] MEDS: Folic Acid 1 MG Tablet PO SCH (09:39)
[2018-06-16] MEDS: Multivitamin/Minerals Therapeutic Tablet PO SCH (09:39)
[2018-06-16 12:40] LABS: Carbon Dioxide 27.1 meq/L (21.0-32.0); Chol/HDL Ratio 3.52 Ratio; HDL Cholesterol 57.9 mg/dL (40.0-60.0); Hemoglobin A1c 5.6 % (4.3-6.0); Potassium 4.1 meq/L (3.5-5.1)
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
[2018-06-17 05:37] VITALS: BP 133/88; PULSE 70; RESP 18; TEMP 98.2; O2SAT 98
[2018-06-17] MEDS: LORazepam 1 MG Tablet PO PRN (08:12)
[2018-06-17] MEDS: Folic Acid 1 MG Tablet PO SCH (08:12)
[2018-06-17] MEDS: Multivitamin/Minerals Therapeutic Tablet PO SCH (08:12)
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
== END 2018-06-17 16:00 | disposition home or self-care (01) ==
LOC: H4EA 21:34 → H270 06-16 17:28
PROVIDERS: ADMIT Student in an Organized Health Care Education/Training Program; ATTEND Student in an Organized Health Care Education/Training Program